=== PATIENT | female | born 1970 | race African-American/Black ===

== ENCOUNTER 2016-12-11 23:05 | Inpatient (IN) | payer OTHER ==
[~2016-12-11] VITALS: Ht 160 cm; Wt 263.1 kg
[~2016-12-11 23:05] MED LIST: ALPR2TAB2 PO; AMLO-254 PO; AMOX1TAB61 PO; ASPI-482 PO; BUME2TAB PO; CEPH-264 PO; FLUO10CA13 PO; FLUT1DIS3 IH; FURO80TA3 PO; HYDR-2678 PO; HYDR-963 PO; METO50TA2 PO; NAPR220C PO; OXYC-244 PO; OXYC-250 PO; PANT40GR PO; POTA10CA PO; PRED20TA PO; PROG100C7 PO; TIOT18CA IH; TIZA4TAB PO; WARF2.5T PO; WARF2TAB7 PO
[2016-12-12] VITALS (8 sets, daily range): BP systolic 115–145; BP diastolic 49–67
--- NOTE | 2016-12-12 00:18 | PHYS DOC ---
Past Medical History Past Medical History: Asthma, CHF, COPD, Pneumonia Additional Past Medical Histor: Pulmonary Edema,morbid obesity Past Surgical History: Tubal ligation Additional Past Surgical Histo: HERNIA REPAIR Alcohol Use: Rarely Drug Use: None Adult General Chief Complaint Chief Complaint: CHEST PAIN HPI HPI Patient is a 46 year old female who presents with chest pain and shortness of breath. Patient reports for the past week she has been having body aches. Last night she started having tightness in her chest that is accompanied by shortness of breath with exertion. She also reports she has syncopal episode today where she for loss consciousness after she sat down on the toilet (did not fall). She was given aspirin and nitroglycerin by EMS. She says the nitroglycerin helped with a tightness in her chest. Review of Systems Review of Systems Constitutional: Lightheaded, syncope. Denies fever or chills Eyes: Denies change in visual acuity or eye pain HENT: Denies nasal congestion or sore throat Respiratory: Shortness of breath with exertion Cardiovascular: Chest tightness GI: Denies abdominal pain, nausea, vomiting, bloody stools or diarrhea : Denies dysuria or hematuria Musculoskeletal: Body aches Integument: Denies rash or skin lesions Neurologic: Denies headache, focal weakness or sensory changes Current Medications Current Medications Current Medications Medications (Trade) Dose Ordered Sig/Ron Start Time Stop Time Status Last Admin Dose Admin Acetaminophen/ Hydrocodone Bitart (Lortab 5/325) 2 tab 1X ONCE 12/12/16 01:30 12/12/16 01:31 DC 12/12/16 01:36 2 TAB Allergies Allergies Allergies Coded Allergies Type Severity Reaction Last Updated Verified coconut Allergy Intermediate 04/23/16 Yes shellfish derived Allergy Intermediate 07/08/14 Yes iodine Adverse Reaction Intermediate Nausea 04/23/16 Yes morphine Adverse Reaction Intermediate severe nausea and migraine 07/26/14 Yes Physical Exam Physical Exam Constitutional: Well developed, well nourished, no acute distress, non-toxic appearance HENT: Normocephalic, atraumatic, bilateral external ears normal Eyes: EOMI, conjunctiva normal, no discharge Neck: Normal range of motion, no stridor Cardiovascular: Heart rate normal, regular rhythm, no murmur Lungs & Thorax: Bilateral breath sounds clear to auscultation Abdomen: Morbidly obese. Bowel sounds normal, soft, non-distended, no TTP Skin: Warm, dry, no erythema, no rash Extremities: No obvious deformity, no edema Neurologic: Alert and oriented X 3, no gross deficits noted Current Patient Data Vital Signs Vital Signs Date Time Temp Pulse Resp B/P Pulse Ox O2 Delivery O2 Flow Rate FiO2 12/12/16 02:30 94 138/63 97 Nasal Cannula 3 12/12/16 01:36 20 12/11/16 23:20 98.5 98.5 Lab Values Laboratory Tests Test 12/12/16 01:00 12/12/16 02:26 White Blood Count 10.1x10^3/uL (4.0-11.0) Red Blood Count 3.72x10^6/uL (3.50-5.40) Hemoglobin 10.2g/dL (12.0-15.5) L Hematocrit 31.4% (36.0-47.0) L Mean Corpuscular Volume 85fL (79-100) Mean Corpuscular Hemoglobin 27pg (25-35) Mean Corpuscular Hemoglobin Concent 32g/dL (31-37) Red Cell Distribution Width 16.9% (11.5-14.5) H Platelet Count 295x10^3/uL (140-400) Neutrophils (%) (Auto) 76% (31-73) H Lymphocytes (%) (Auto) 16% (24-48) L Monocytes (%) (Auto) 5% (0-9) Eosinophils (%) (Auto) 2% (0-3) Basophils (%) (Auto) 1% (0-3) Neutrophils # (Auto) 7.7x10^3uL (1.8-7.7) Lymphocytes # (Auto) 1.6x10^3/uL (1.0-4.8) Monocytes # (Auto) 0.5x10^3/uL (0.0-1.1) Eosinophils # (Auto) 0.2x10^3/uL (0.0-0.7) Basophils # (Auto) 0.1x10^3/uL (0.0-0.2) Sodium Level 138mmol/L (136-145) Potassium Level 4.7mmol/L (3.5-5.1) Chloride Level 99mmol/L (98-107) Carbon Dioxide Level 37mmol/L (21-32) H Anion Gap 2 (6-14) L Blood Urea Nitrogen 11mg/dL (7-20) Creatinine 0.6mg/dL (0.6-1.0) Estimated GFR (Cockcroft-Gault) 131.4 Glucose Level 94mg/dL (70-99) Calcium Level 9.4mg/dL (8.5-10.1) Total Bilirubin 0.5mg/dL (0.2-1.0) Direct Bilirubin < 0.1mg/dL (0.0-0.2) Aspartate Amino Transferase (AST) 34U/L (15-37) Alanine Aminotransferase (ALT) 10U/L (14-59) L Alkaline Phosphatase 63U/L (46-116) Troponin I Quantitative < 0.017ng/mL (0.000-0.055) GG-Yke-C-Type Natriuretic Peptide 66pg/mL (0-124) Total Protein 8.4g/dL (6.4-8.2) H Albumin 2.9g/dL (3.4-5.0) L Urine Collection Type U cath Urine Color Yellow Urine Clarity Clear Urine pH 5.5 Urine Specific Leonard 1.020 Urine Protein Negativemg/dL (NEG-TRACE) Urine Glucose (UA) Negativemg/dL (NEG) Urine Ketones (Stick) Negativemg/dL (NEG) Urine Blood Negative (NEG) Urine Nitrite Negative (NEG) Urine Bilirubin Negative (NEG) Urine Urobilinogen Dipstick 0.2mg/dL (0.2 mg/dL) Urine Leukocyte Esterase Negative (NEG) Urine RBC Occ/HPF (0-2) Urine WBC Occ/HPF (0-4) Urine Squamous Epithelial Cells Few/LPF Urine Bacteria 0/HPF (0-FEW) Urine Hyaline Casts Few/HPF Laboratory Tests 12/12/16 01:00 Laboratory Tests 12/12/16 01:00 EKG EKG EKG (my read): sinus rhythm, rate 92, LAD, intervals wnl, no acute ischemic changes Radiology/Procedures Radiology/Procedures CXR (my read): Linear opacity R lung base Course & Med Decision Making Course & Med Decision Making Pertinent Labs and Imaging studies reviewed. (See chart for details) Patient is 46-year-old female who presents with chest pain, shortness of breath , syncopal episode. Will check EKG, chest x-ray, labs to evaluate. Oral pain medication ordered for relief of symptoms. Labs notable for mild anemia. EKG and chest x-ray results as above. Although I believe findings on chest x-ray or more likely platelike atelectasis, I will go ahead and treat with azithromycin and Rocephin to cover for possibility of community-acquired pneumonia. Discussed with patient. Discussed with Dr. Junior, will admit under his care for further evaluation and treatment. Dragon Disclaimer Dragon Disclaimer This electronic medical record was generated, in whole or in part, using a voice recognition dictation system. Departure Departure Impression: Primary Impression: Syncope Additional Impressions: Chest pain SOB (shortness of breath) Disposition: ADMITTED INPATIENT Admitting Physician: Zev Junior Condition: STABLE Referrals: VALERIA JEFFERY TOOL MACHINIST (PCP) Problem Qualifiers SHARRON SILVA MD Dec 12, 2016 00:18
[2016-12-12 01:17] LABS: BASO # 0.1 x10^3/uL (0.0-0.2); BASO % 1 % (0-3); EOS % 2 % (0-3); HEMATOCRIT 31.4 % (36.0-47.0); HEMOGLOBIN 10.2 g/dL (12.0-15.5); LYMPH # 1.6 x10^3/uL (1.0-4.8); LYMPH % 16 % (24-48); MEAN CORPUSCULAR HEMOGLOBIN 27 pg (25-35); MEAN CORPUSCULAR HGB CONC 32 g/dL (31-37); MEAN CORPUSCULAR VOLUME 85 fL (79-100); MONO % 5 % (0-9); NEUT % 76 % (31-73); PLATELET COUNT 295 x10^3/uL (140-400); RED BLOOD COUNT 3.72 x10^6/uL (3.50-5.40); RED CELL DISTRIBUTION WIDTH 16.9 % (11.5-14.5); WHITE BLOOD COUNT 10.1 x10^3/uL (4.0-11.0)
[2016-12-12 01:30] LABS: ANION GAP 2 (6-14); BLOOD UREA NITROGEN 11 mg/dL (7-20); CALCIUM 9.4 mg/dL (8.5-10.1); CARBON DIOXIDE 37 mmol/L (21-32); CHLORIDE 99 mmol/L (98-107); CREATININE 0.6 mg/dL (0.6-1.0); GFR 131.4; GLUCOSE 94 mg/dL (70-99); POTASSIUM 4.7 mmol/L (3.5-5.1); SODIUM 138 mmol/L (136-145)
[2016-12-12] MEDS ORDERED: HYDROCODONE/APAP 5/325MG TABLET. PO ONE (01:30)
[2016-12-12 01:36] LABS: ALBUMIN 2.9 g/dL (3.4-5.0); ALK PHOS 63 U/L (46-116); ALT (SGPT) 10 U/L (14-59); AST (SGOT) 34 U/L (15-37); DIRECT BILIRUBIN < 0.1 mg/dL (0.0-0.2); TOTAL BILIRUBIN 0.5 mg/dL (0.2-1.0); TOTAL PROTEIN 8.4 g/dL (6.4-8.2)
[2016-12-12 02:45] LABS: BILIRUBIN,URINE NEGATIVE (NEG); GLUCOSE,URINE NEGATIVE (NEG); NITRITE,URINE NEGATIVE (NEG); PH,URINE 5.5; PROTEIN,URINE NEGATIVE (NEG-TRACE); UROBILINOGEN,URINE 0.2 mg/dL (0.2 mg/dL)
[2016-12-12] MEDS ORDERED: ONDANSETRON PF 4 MG/2 ML VIAL. IV PRN (02:45)
[2016-12-12] MEDS ORDERED: ACETAMINOPHEN 325 MG TABLET. PO PRN (02:45)
[2016-12-12] MEDS ORDERED: AZITHROMYCIN 500 MG in IV NORMAL SALINE 250ML 250 ML IV ONE (03:00)
[2016-12-12] MEDS ORDERED: CEFTRIAXONE 1GM IVPB FOR OMNI 50 ML IV ONE (03:00)
[2016-12-12 03:25] LABS: BACTERIA,URINE 0 /HPF (0-FEW); RBC,URINE OCC /HPF (0-2); SQUAMOUS EPITHELIAL CELL,UR FEW /LPF; WBC,URINE OCC /HPF (0-4)
[2016-12-12] MEDS ORDERED: NYST60PO TP (04:05)
[2016-12-12] MEDS ORDERED: PROAIR HFA8.5 GM INH (04:05)
[2016-12-12] MEDS ORDERED: METO10TA5 PO (04:05)
[2016-12-12] MEDS ORDERED: FLUT16SP NS (04:05)
[2016-12-12] MEDS ORDERED: POTA20TA4 PO (04:05)
[2016-12-12] MEDS ORDERED: FERR-26 PO (04:05)
[2016-12-12] MEDS ORDERED: FURO80TA3 PO (04:05)
--- NOTE | 2016-12-12 07:29 | RAD ---
Portable chest, 12/12/2016: History: Shortness of breath, chest pressure Comparison is made to a study from 08/17/2016. There is chronic elevation of the right hemidiaphragm. There is mild discoid atelectasis in the right base. The heart is mildly enlarged. The pulmonary vascularity is at the upper limits of normal. No left lung infiltrate is seen. No pleural fluid is evident. IMPRESSION: 1. Chronic elevation of the right hemidiaphragm with discoid atelectasis in the right base. 2. Cardiomegaly with borderline vascular congestion.
--- NOTE | 2016-12-12 08:34 | EKG ---
[facility] [address] [place] [address] Test Date: 2016-12-11 Test Time: 23:17:53 Pat Name: LELO UMANA Department: Room: Gender: F [employer] Superintendent: : 1970 Requested By: SHARRON SILVA Order Number: [id number] Reading MD: Measurements Intervals [place] Rate: 92 P: 59 MI: 204 QRS: -8 QRSD: 74 T: 23 QT: 356 QTc: 445 Interpretive Statements SINUS RHYTHM LEFTWARD AXIS QRS(T) CONTOUR ABNORMALITY CONSISTENT WITH INFERIOR INFARCT PROBABLY OLD ABNORMAL ECG RI6.01 Compared to ECG 08/17/2016 02:46:44 Left-axis deviation now present Myocardial infarct finding now present
[2016-12-12] MEDS ORDERED: NON FORMULARY ITEM (Albuterol Sulfate (Proair Hfa Inhaler) 1 PUFF) INH PRN (13:00)
[2016-12-12] MEDS ORDERED: ALBUTEROL SULFATE 2.5 MG/3 ML NEBU. NEB PRN (13:00)
[2016-12-12 13:29] LABS: INR 2.2 (0.8-1.1); PROTHROMBIN TIME PATIENT 23.5 SEC (11.7-14.0)
[2016-12-12] MEDS: POTASSIUM CHLORIDE 20 MEQ TABLET.ER. PO SCH (14:41)
[2016-12-12] MEDS: FUROSEMIDE 80 MG TABLET PO SCH (14:42)
[2016-12-12] MEDS: tiZANidine 4 MG TABLET. PO SCH ×2 (14:42→21:10)
[2016-12-12] MEDS: FERROUS SULFATE 325 MG TABLET PO SCH (14:42)
[2016-12-12] MEDS: PROGESTERONE, MICRONIZED 100 MG CAPSULE PO SCH (14:42)
[2016-12-12] MEDS: HYDROCODONE/APAP 10/325 TABLET. PO PRN ×2 (14:43→21:13)
[2016-12-12] MEDS: FLUTICASONE 50MCG/NASAL SPRAY 16GM BOTTLE. NS SCH (14:44)
[2016-12-12] MEDS: WARFARIN 2.5 MG TABLET. PO SCH (16:00)
[2016-12-12 18:00] LABS: OBC FLU VALID
[2016-12-12] MEDS ORDERED: FUROSEMIDE 40 MG/4 ML VIAL IVP ONE (20:15)
[2016-12-12] MEDS: ALPRAZOLAM 1 MG TABLET PO PRN (21:13)
--- NOTE | 2016-12-13 02:09 | HP ---
ADMIT DATE: 12/12/2016 CHIEF COMPLAINT: Generalized body aches, respirophasic chest pain, shortness of breath. HISTORY OF PRESENT ILLNESS: This is a 46-year-old woman, who presented to the Emergency Room with several days of shortness of breath and worsening chest pain. She related this as slowly had been coming on and getting worse and worse. She also had worsening shortness of breath with exertion. Reports one episode of syncope while using the toilet without any injuries. In the EMS, she was given nitroglycerin and aspirin and relates that her chest tightness that she has experienced since last night, actually has improved. She denies any subjective fevers or chills, has generalized malaise and myalgia, no sick contacts. PAST MEDICAL HISTORY: Asthma, COPD, CHF, morbid obesity, hypoventilation syndrome and pulmonary edema. She is status post tubal ligation and hernia repair. FAMILY HISTORY: Negative for heart disease or hypertension. SOCIAL HISTORY: Lives with her family. No toxic habits, quit smoking several years ago. ALLERGIES: IODINE, MORPHINE AND SHELLFISH. MEDICATIONS: MAR reconciled with home medications. REVIEW OF SYSTEMS: Positive as per HPI. Neck hurts as well causing some stress headaches. She also relates that she has gained about 16 pounds in the past week and is concerned that her fluid is accumulating in one of her pannus. PHYSICAL EXAMINATION: VITAL SIGNS: From today show a blood pressure of 120/63, heart rate of 99, respiratory rate is 20. She is afebrile. GENERAL: This is a catastrophically obese, 46-year-old woman, alert and oriented, in no acute distress. HEENT: Shows no scleral icterus. Oral mucosa is pink and moist. NECK: Thick and no palpable lymphadenopathy. LUNGS: Clear to auscultation bilaterally. Distant breath sounds. HEART: Regular rate and rhythm, distant heart sounds. ABDOMEN: Massively obese, positive bowel sounds. Organs could not be palpated. EXTREMITIES: Showed massively fat thighs, ankles with trace edema are actually fairly slim, chronic venous stasis changes over her distal lower extremities. LABORATORY DATA: CBC with a WBC of 10.1, hemoglobin 10.2, platelets of 295. BUN and creatinine of 11 and 0.6, normal electrolytes safe for CO2 at 37. LFTs within normal. Albumin is 2.9. Troponin negative x 3. Influenza serology negative for A and B. IMAGING: Chest x-ray in the Emergency Room showing cardiomegaly and chronic elevation of right hemidiaphragm with discoid atelectasis in the right base. ASSESSMENT AND PLAN: The patient is a 46-year-old woman with catastrophic obesity with a BMI of 98.5. Admitted with mild respiratory symptoms malaise, aches and pains, suspicious for a viral syndrome. I suspect that In addition, she has fluid retention as her Lasix dose actually has been cut by her PCP from 160 to 120 mg several days ago. Increased vascular congestion on chest x-ray is indicative as is massive weight gain. We will treat her symptomatically for her respiratory infection. For fluid retention, we will give her IV Lasix and place Earl as her body habitus is not contuses to getting up and out of bed easily. I will continue all of her other home medications as well. Hopefully, symptoms will improve in short order. SAILAJA GARCIA MD DR: TAMIKO/georgette JOB#: [id number] / [id number] RHONDA
[2016-12-13 03:00] VITALS: BP 109/60
[2016-12-13 05:56] LABS: CALCIUM 8.6 mg/dL (8.5-10.1); CREATININE 0.8 mg/dL (0.6-1.0); GFR 94.3; MAGNESIUM 1.7 mg/dL (1.8-2.4); POTASSIUM 3.5 mmol/L (3.5-5.1)
[2016-12-13 06:08] LABS: BASO % 0 % (0-3); EOS % 3 % (0-3); HEMATOCRIT 29.9 % (36.0-47.0); HEMOGLOBIN 9.9 g/dL (12.0-15.5); LYMPH # 1.7 x10^3/uL (1.0-4.8); LYMPH % 21 % (24-48); MEAN CORPUSCULAR HEMOGLOBIN 28 pg (25-35); MEAN CORPUSCULAR HGB CONC 33 g/dL (31-37); MEAN CORPUSCULAR VOLUME 85 fL (79-100); MONO % 6 % (0-9); NEUT % 70 % (31-73); PLATELET COUNT 270 x10^3/uL (140-400); RED BLOOD COUNT 3.51 x10^6/uL (3.50-5.40); RED CELL DISTRIBUTION WIDTH 17.1 % (11.5-14.5); WHITE BLOOD COUNT 8.2 x10^3/uL (4.0-11.0)
[2016-12-13 07:30] VITALS: BP 107/50
[2016-12-13] MEDS: FERROUS SULFATE 325 MG TABLET PO SCH (09:08)
[2016-12-13] MEDS: POTASSIUM CHLORIDE 20 MEQ TABLET.ER. PO SCH (09:09)
[2016-12-13] MEDS: FLUTICASONE 50MCG/NASAL SPRAY 16GM BOTTLE. NS SCH ×2 (09:09→09:23)
[2016-12-13] MEDS: PROGESTERONE, MICRONIZED 100 MG CAPSULE PO SCH (09:10)
[2016-12-13] MEDS: FUROSEMIDE 80 MG TABLET PO SCH (09:10)
[2016-12-13] MEDS: tiZANidine 4 MG TABLET. PO SCH ×2 (09:10→21:17)
[2016-12-13 11:16] VITALS: BP 102/50
--- NOTE | 2016-12-13 12:43 | PDOC ---
PROGRESS NOTES Chief Complaint Chief Complaint Viral Syndrome ASSESSMENT AND PLAN: 1. Viral syndrome: supportive care 2. Fluid overload: IV lasix PRN in addition to home dose. I&O -1700/24h so far 3. Hypomagnesemia: replete IV 4. Hypokalemia: replete PO 5. Hypercarbia: chronic, stable, 2/2 hypoventilation with morbid obesity. has CPAP for sleep 6. Anemia: chronic, stable. suspect chronic inflammation. monitor 7. Prophylaxis: SCDs. no change in activity level from home 8. Dispo: poss home in AM Vitals Vitals Vital Signs Date Time Temp Pulse Resp B/P Pulse Ox O2 Delivery O2 Flow Rate FiO2 12/13/16 11:16 97.8 89 20 102/50 94 Nasal Cannula 3.0 97.8 Physical Exam General: Alert, Oriented X3, Cooperative, No acute distress Heart: Regular rate Lungs: Clear Abdomen: Normal bowel sounds Extremities: No edema Skin: No rashes Labs LABS Laboratory Tests Test 12/12/16 14:20 12/12/16 17:19 12/13/16 04:48 Troponin I Quantitative < 0.017ng/mL (0.000-0.055) Influenza Type A Antigen Negative (NEGATIVE) Influenza Type B Antigen Negative (NEGATIVE) White Blood Count 8.2x10^3/uL (4.0-11.0) Red Blood Count 3.51x10^6/uL (3.50-5.40) Hemoglobin 9.9g/dL (12.0-15.5) Hematocrit 29.9% (36.0-47.0) Mean Corpuscular Volume 85fL (79-100) Mean Corpuscular Hemoglobin 28pg (25-35) Mean Corpuscular Hemoglobin Concent 33g/dL (31-37) Red Cell Distribution Width 17.1% (11.5-14.5) Platelet Count 270x10^3/uL (140-400) Neutrophils (%) (Auto) 70% (31-73) Lymphocytes (%) (Auto) 21% (24-48) Monocytes (%) (Auto) 6% (0-9) Eosinophils (%) (Auto) 3% (0-3) Basophils (%) (Auto) 0% (0-3) Neutrophils # (Auto) 5.7x10^3uL (1.8-7.7) Lymphocytes # (Auto) 1.7x10^3/uL (1.0-4.8) Monocytes # (Auto) 0.5x10^3/uL (0.0-1.1) Eosinophils # (Auto) 0.3x10^3/uL (0.0-0.7) Basophils # (Auto) 0.0x10^3/uL (0.0-0.2) Sodium Level 145mmol/L (136-145) Potassium Level 3.5mmol/L (3.5-5.1) Chloride Level 103mmol/L (98-107) Carbon Dioxide Level 40mmol/L (21-32) Anion Gap 2 (6-14) Blood Urea Nitrogen 11mg/dL (7-20) Creatinine 0.8mg/dL (0.6-1.0) Estimated GFR (Cockcroft-Gault) 94.3 Glucose Level 122mg/dL (70-99) Calcium Level 8.6mg/dL (8.5-10.1) Magnesium Level 1.7mg/dL (1.8-2.4) Review of Systems Review of Systems resting comfortably. no c/o SAILAJA GARCIA MD Dec 13, 2016 12:43
[2016-12-13 15:02] VITALS: BP 113/65
[2016-12-13] MEDS: WARFARIN 2.5 MG TABLET. PO SCH (16:15)
[2016-12-13] MEDS: HYDROCODONE/APAP 10/325 TABLET. PO PRN ×2 (16:17→21:18)
[2016-12-13] MEDS ORDERED: POTASSIUM CHLORIDE 20 MEQ TABLET.ER. PO ONE ×2 (17:00→21:00)
[2016-12-13] MEDS ORDERED: FUROSEMIDE 40 MG/4 ML VIAL IVP ONE (17:00)
[2016-12-13] MEDS ORDERED: MAGNESIUM SULFATE 2GM 50 ML IV ONE (17:00)
[2016-12-13 19:59] VITALS: BP 138/58
[2016-12-13] MEDS: ALPRAZOLAM 1 MG TABLET PO PRN (21:18)
[2016-12-13 23:30] VITALS: BP 84/52
[2016-12-14] MEDS: HYDROCODONE/APAP 10/325 TABLET. PO PRN ×3 (02:52→22:56)
[2016-12-14 03:59] VITALS: BP 122/44
[2016-12-14 07:00] VITALS: BP 125/44
[2016-12-14 08:37] LABS: BASO % 0 % (0-3); EOS % 3 % (0-3); HEMATOCRIT 33.4 % (36.0-47.0); HEMOGLOBIN 10.6 g/dL (12.0-15.5); LYMPH # 1.7 x10^3/uL (1.0-4.8); LYMPH % 18 % (24-48); MEAN CORPUSCULAR HEMOGLOBIN 27 pg (25-35); MEAN CORPUSCULAR HGB CONC 32 g/dL (31-37); MEAN CORPUSCULAR VOLUME 87 fL (79-100); MONO % 4 % (0-9); NEUT % 76 % (31-73); PLATELET COUNT 287 x10^3/uL (140-400); RED BLOOD COUNT 3.86 x10^6/uL (3.50-5.40); RED CELL DISTRIBUTION WIDTH 16.4 % (11.5-14.5); WHITE BLOOD COUNT 9.6 x10^3/uL (4.0-11.0)
[2016-12-14 08:50] LABS: INR 1.9 (0.8-1.1); PROTHROMBIN TIME PATIENT 20.7 SEC (11.7-14.0)
[2016-12-14 08:57] LABS: CALCIUM 8.7 mg/dL (8.5-10.1); CREATININE 0.7 mg/dL (0.6-1.0); MAGNESIUM 1.9 mg/dL (1.8-2.4); POTASSIUM 3.8 mmol/L (3.5-5.1)
[2016-12-14] MEDS: FERROUS SULFATE 325 MG TABLET PO SCH (10:33)
[2016-12-14] MEDS: tiZANidine 4 MG TABLET. PO SCH ×2 (10:33→21:16)
[2016-12-14] MEDS: POTASSIUM CHLORIDE 20 MEQ TABLET.ER. PO SCH (10:33)
[2016-12-14] MEDS: FUROSEMIDE 80 MG TABLET PO SCH (10:35)
[2016-12-14] MEDS: FLUTICASONE 50MCG/NASAL SPRAY 16GM BOTTLE. NS SCH (10:35)
[2016-12-14] MEDS: PROGESTERONE, MICRONIZED 100 MG CAPSULE PO SCH (10:35)
[2016-12-14 11:00] VITALS: BP 146/74
--- NOTE | 2016-12-14 13:59 | PDOC ---
PROGRESS NOTES Chief Complaint Chief Complaint Viral Syndrome ASSESSMENT AND PLAN: 1. Viral syndrome: supportive care 2. Fluid overload: much improved. IV lasix PRN in addition to home dose. I&O -3-4L daily, although same wt by bed scale. increase home lasix back up to 160mg. 3. Hypomagnesemia: resolved 4. Hypokalemia: resolved. continue repletion PO with ongoing lasix rx 5. Hypercarbia: chronic, stable, 2/2 hypoventilation with morbid obesity. has CPAP for sleep 6. Anemia: chronic, stable. suspect chronic inflammation. monitor 7. Prophylaxis: SCDs. no change in activity level from home 8. Dispo: home in AM Vitals Vitals Vital Signs Date Time Temp Pulse Resp B/P Pulse Ox O2 Delivery O2 Flow Rate FiO2 12/14/16 11:00 98.2 99 18 146/74 97 Nasal Cannula 3.0 98.2 Physical Exam General: Alert, Oriented X3, Cooperative, No acute distress Heart: Regular rate Lungs: Clear Abdomen: Normal bowel sounds Extremities: No edema Skin: No rashes Labs LABS Laboratory Tests Test 12/14/16 08:05 12/14/16 08:25 White Blood Count 9.6x10^3/uL (4.0-11.0) Red Blood Count 3.86x10^6/uL (3.50-5.40) Hemoglobin 10.6g/dL (12.0-15.5) Hematocrit 33.4% (36.0-47.0) Mean Corpuscular Volume 87fL (79-100) Mean Corpuscular Hemoglobin 27pg (25-35) Mean Corpuscular Hemoglobin Concent 32g/dL (31-37) Red Cell Distribution Width 16.4% (11.5-14.5) Platelet Count 287x10^3/uL (140-400) Neutrophils (%) (Auto) 76% (31-73) Lymphocytes (%) (Auto) 18% (24-48) Monocytes (%) (Auto) 4% (0-9) Eosinophils (%) (Auto) 3% (0-3) Basophils (%) (Auto) 0% (0-3) Neutrophils # (Auto) 7.2x10^3uL (1.8-7.7) Lymphocytes # (Auto) 1.7x10^3/uL (1.0-4.8) Monocytes # (Auto) 0.4x10^3/uL (0.0-1.1) Eosinophils # (Auto) 0.3x10^3/uL (0.0-0.7) Basophils # (Auto) 0.0x10^3/uL (0.0-0.2) Prothrombin Time 20.7SEC (11.7-14.0) Prothromb Time International Ratio 1.9 (0.8-1.1) Sodium Level 139mmol/L (136-145) Potassium Level 3.8mmol/L (3.5-5.1) Chloride Level 98mmol/L (98-107) Carbon Dioxide Level 38mmol/L (21-32) Anion Gap 3 (6-14) Blood Urea Nitrogen 13mg/dL (7-20) Creatinine 0.7mg/dL (0.6-1.0) Estimated GFR (Cockcroft-Gault) 110.0 Glucose Level 118mg/dL (70-99) Calcium Level 8.7mg/dL (8.5-10.1) Magnesium Level 1.9mg/dL (1.8-2.4) Review of Systems Review of Systems feels better. is convinced she can assess fluid status by poking pannus. SAILAJA GARCIA MD Dec 14, 2016 13:59
[2016-12-14 15:00] VITALS: BP 118/64
[2016-12-14] MEDS: WARFARIN 2.5 MG TABLET. PO SCH (18:23)
[2016-12-14 19:00] VITALS: BP 137/81
[2016-12-14] MEDS: ALPRAZOLAM 1 MG TABLET PO PRN (21:16)
[2016-12-14 23:00] VITALS: BP 95/99
[2016-12-15 03:00] VITALS: BP_SYST 115; BP_SYST 95; BP_DIAS 64; BP_DIAS 99
[2016-12-15 05:08] LABS: BASO % 0 % (0-3); EOS % 3 % (0-3); HEMATOCRIT 33.4 % (36.0-47.0); HEMOGLOBIN 10.5 g/dL (12.0-15.5); LYMPH # 1.5 x10^3/uL (1.0-4.8); LYMPH % 16 % (24-48); MEAN CORPUSCULAR HEMOGLOBIN 27 pg (25-35); MEAN CORPUSCULAR HGB CONC 32 g/dL (31-37); MEAN CORPUSCULAR VOLUME 86 fL (79-100); MONO % 3 % (0-9); NEUT % 78 % (31-73); PLATELET COUNT 285 x10^3/uL (140-400); RED BLOOD COUNT 3.86 x10^6/uL (3.50-5.40); RED CELL DISTRIBUTION WIDTH 16.6 % (11.5-14.5); WHITE BLOOD COUNT 9.4 x10^3/uL (4.0-11.0)
[2016-12-15] MEDS: HYDROCODONE/APAP 10/325 TABLET. PO PRN (06:11)
[2016-12-15 06:22] LABS: CALCIUM 8.6 mg/dL (8.5-10.1); CREATININE 0.8 mg/dL (0.6-1.0); GFR 94.3; MAGNESIUM 1.8 mg/dL (1.8-2.4); POTASSIUM 3.2 mmol/L (3.5-5.1)
[2016-12-15 07:00] VITALS: BP 118/62
[2016-12-15 08:10] VITALS: BP 118/62
[2016-12-15] MEDS: FERROUS SULFATE 325 MG TABLET PO SCH (08:23)
[2016-12-15] MEDS: POTASSIUM CHLORIDE 20 MEQ TABLET.ER. PO SCH (08:24)
[2016-12-15] MEDS: PROGESTERONE, MICRONIZED 100 MG CAPSULE PO SCH (08:25)
[2016-12-15] MEDS: tiZANidine 4 MG TABLET. PO SCH (08:26)
[2016-12-15] MEDS: FUROSEMIDE 80 MG TABLET PO SCH (08:27)
[2016-12-15] MEDS: FLUTICASONE 50MCG/NASAL SPRAY 16GM BOTTLE. NS SCH (08:28)
[2016-12-15] MEDS ORDERED: POTASSIUM CHLORIDE 20 MEQ TABLET.ER. PO ONE (08:45)
[2016-12-15] MEDS ORDERED: DICLOFENAC SODIUM 1% TOPICAL GEL 100GM TUBE. TP SCH (09:00)
--- NOTE | 2016-12-15 09:37 | PDOC ---
PROGRESS NOTES Chief Complaint Chief Complaint Viral Syndrome ASSESSMENT AND PLAN: 1. Viral syndrome: supportive care 2. Fluid overload: much improved. IV lasix PRN in addition to home dose. I&O -3-4L daily, although same wt by bed scale. increase home lasix back up to 160mg. 3. Hypomagnesemia: resolved 4. Hypokalemia: resolved. continue repletion PO with ongoing lasix rx 5. Hypercarbia: chronic, stable, 2/2 hypoventilation with morbid obesity. has CPAP for sleep 6. Anemia: chronic, stable. suspect chronic inflammation. monitor 7. Prophylaxis: SCDs. no change in activity level from home 8. Dispo: home tioday Vitals Vitals Vital Signs Date Time Temp Pulse Resp B/P Pulse Ox O2 Delivery O2 Flow Rate FiO2 12/15/16 08:10 97.9 101 20 118/62 BiPAP/CPAP 90.0 97.9 12/15/16 08:07 96 Physical Exam General: Alert, Oriented X3, Cooperative, No acute distress Heart: Regular rate Lungs: Clear Abdomen: Normal bowel sounds Extremities: No edema Skin: No rashes Labs LABS Laboratory Tests Test 12/15/16 04:10 White Blood Count 9.4x10^3/uL (4.0-11.0) Red Blood Count 3.86x10^6/uL (3.50-5.40) Hemoglobin 10.5g/dL (12.0-15.5) Hematocrit 33.4% (36.0-47.0) Mean Corpuscular Volume 86fL (79-100) Mean Corpuscular Hemoglobin 27pg (25-35) Mean Corpuscular Hemoglobin Concent 32g/dL (31-37) Red Cell Distribution Width 16.6% (11.5-14.5) Platelet Count 285x10^3/uL (140-400) Neutrophils (%) (Auto) 78% (31-73) Lymphocytes (%) (Auto) 16% (24-48) Monocytes (%) (Auto) 3% (0-9) Eosinophils (%) (Auto) 3% (0-3) Basophils (%) (Auto) 0% (0-3) Neutrophils # (Auto) 7.4x10^3uL (1.8-7.7) Lymphocytes # (Auto) 1.5x10^3/uL (1.0-4.8) Monocytes # (Auto) 0.3x10^3/uL (0.0-1.1) Eosinophils # (Auto) 0.2x10^3/uL (0.0-0.7) Basophils # (Auto) 0.0x10^3/uL (0.0-0.2) Sodium Level 139mmol/L (136-145) Potassium Level 3.2mmol/L (3.5-5.1) Chloride Level 97mmol/L (98-107) Carbon Dioxide Level 37mmol/L (21-32) Anion Gap 5 (6-14) Blood Urea Nitrogen 12mg/dL (7-20) Creatinine 0.8mg/dL (0.6-1.0) Estimated GFR (Cockcroft-Gault) 94.3 Glucose Level 153mg/dL (70-99) Calcium Level 8.6mg/dL (8.5-10.1) Magnesium Level 1.8mg/dL (1.8-2.4) Review of Systems Review of Systems feels much improved, ready to go home Comment Review of Relevant SAILAJA GARCIA MD Dec 15, 2016 09:37
[2016-12-15 11:08] VITALS: BP 91/45
[2016-12-15] MEDS ORDERED: FURO80TA3 PO (11:11)
--- NOTE | 2016-12-16 00:34 | DS ---
DATE OF DISCHARGE: 12/15/2016 CHIEF COMPLAINT: Viral syndrome, fluid overload. HOSPITAL COURSE: The patient is a catastrophically obese 46-year-old woman who presented with some shortness of breath and generalized malaise without any fevers, minimal respiratory symptoms with cough. She was diagnosed presumptively with viral syndrome. Because of significant increase in weight, suspicion for fluid overload was given as well and she was therefore treated with additional Lasix IV. This resulted in successful diuresis of about 7-8 liters. The patient was feeling much better and was discharged on the 12/15/2016. PHYSICAL EXAMINATION: Please refer to note from same day. DISCHARGE DISPOSITION: To home. DISCHARGE CONDITION: Improved. DISCHARGE DIAGNOSES: Viral syndrome, fluid overload. DISCHARGE MEDICATIONS: Please refer to MAR. DISCHARGE INSTRUCTIONS: The patient will follow up with PCP in 1-2 weeks. SAILAJA GARCIA MD [address]: TAMIKO/nts JOB#: [id number] / [id number] VALERIA Donovan NP MTDD
== END 2016-12-15 13:09 | disposition home or self-care (01) | DRG 865 ==
LOC: ER 23:05 → 5 NORTH 12-12 02:34
PROVIDERS: ADMIT Internal Medicine; ATTEND Internal Medicine
DX: B34.9 Viral infection, unspecified (principal); J96.20 Acute and chronic respiratory failure, unspecified whether with hypoxia or hypercapnia; Z68.45 Body mass index [BMI] 70 or greater, adult; D64.9 Anemia, unspecified; E66.01 Morbid (severe) obesity due to excess calories; E83.42 Hypomagnesemia; E87.6 Hypokalemia; I50.9 Heart failure, unspecified; J44.9 Chronic obstructive pulmonary disease, unspecified; J45.909 Unspecified asthma, uncomplicated; Z86.711 Personal history of pulmonary embolism; Z98.51 Tubal ligation status; Z91.041 Radiographic dye allergy status; Z88.5 Allergy status to narcotic agent; Z91.013 Allergy to seafood; Z91.018 Allergy to other foods; Z91.048 Other nonmedicinal substance allergy status; E66.8 Other obesity
CPT/HCPCS: 36415; 71010; 80048; 80076; 81001; 83735; 83880; 84484; 85027; 85610; 87040; 87804; 93005; 94250; 94640; 94660; 94760; 95811; 96374; J0456; J0690; J1940; J7050; J7060; 99285-25; J7030

== ENCOUNTER 2017-01-16 01:18 | Inpatient (IN) | payer OTHER ==
[~2017-01-16] VITALS: Ht 172.7 cm; Wt 252.8 kg
[~2017-01-16 01:18] MED LIST changes: +FERR-26 PO; +FLUT16SP NS; +METO10TA5 PO; +NYST60PO TP; +POTA20TA4 PO; +PROAIR HFA8.5 GM INH
[2017-01-16 02:05] LABS: BASO # 0.1 x10^3/uL (0.0-0.2); BASO % 1 % (0-3); EOS % 2 % (0-3); HEMATOCRIT 32.3 % (36.0-47.0); HEMOGLOBIN 10.3 g/dL (12.0-15.5); LYMPH # 1.2 x10^3/uL (1.0-4.8); LYMPH % 14 % (24-48); MEAN CORPUSCULAR HEMOGLOBIN 28 pg (25-35); MEAN CORPUSCULAR HGB CONC 32 g/dL (31-37); MEAN CORPUSCULAR VOLUME 87 fL (79-100); MONO % 4 % (0-9); NEUT % 79 % (31-73); PLATELET COUNT 322 x10^3/uL (140-400); RED BLOOD COUNT 3.72 x10^6/uL (3.50-5.40); RED CELL DISTRIBUTION WIDTH 14.9 % (11.5-14.5); WHITE BLOOD COUNT 8.8 x10^3/uL (4.0-11.0)
[2017-01-16 02:11] LABS: INR 3.6 (0.8-1.1); PROTHROMBIN TIME PATIENT 34.2 SEC (11.7-14.0)
[2017-01-16 02:13] LABS: CALCIUM 8.9 mg/dL (8.5-10.1); CREATININE 0.7 mg/dL (0.6-1.0); POTASSIUM 3.6 mmol/L (3.5-5.1)
--- NOTE | 2017-01-16 02:25 | PHYS DOC ---
Past Medical History Past Medical History: Asthma, CHF, COPD, Pneumonia Additional Past Medical Histor: Pulmonary Edema,morbid obesity Past Surgical History: Tubal ligation Additional Past Surgical Histo: HERNIA REPAIR Alcohol Use: Rarely Drug Use: None Adult General Chief Complaint Chief Complaint: SHORTNESS OF BREATH [facility] HPI Patient is a 46 year old female who presents with dyspnea, chest tightness, and swelling worsening over the past few days. States she feels swelling in her abdominal wall and legs. She has gained >20lbs on her home scale over the past 2 weeks. She has orthopnea and worse exertional dyspnea than baseline. Has decreased urine output recently. She denies f/c, cough, abdominal pain, diarrhea, dysuria, palpitations, diaphoresis. Review of Systems Review of Systems Constitutional: Denies fever or chills [] Eyes: Denies change in visual acuity, redness, or eye pain [] HENT: Denies nasal congestion or sore throat [] Respiratory: Denies cough [] Cardiovascular: No additional information not addressed in HPI [] GI: Denies abdominal pain, nausea, vomiting, bloody stools or diarrhea [] : Denies dysuria or hematuria [] Musculoskeletal: Denies back pain or joint pain [] Integument: Denies rash or skin lesions [] Neurologic: Denies headache, focal weakness or sensory changes [] Endocrine: Denies polyuria or polydipsia [] Current Medications Current Medications Current Medications Medications (Trade) Dose Ordered Sig/Ron Start Time Stop Time Status Last Admin Dose Admin Acetaminophen (Tylenol) 650 mg PRN Q4HRS PRN 01/16/17 03:30 01/17/17 03:29 Furosemide (Lasix) 100 mg 1X ONCE 01/16/17 03:30 01/16/17 03:31 DC 01/16/17 03:39 100 MG Ondansetron HCl (Zofran) 4 mg PRN Q8HRS PRN 01/16/17 03:30 01/17/17 03:29 Allergies Allergies Allergies Coded Allergies Type Severity Reaction Last Updated Verified coconut Allergy Intermediate 04/23/16 Yes povidone-iodine Allergy Intermediate Rash 12/14/16 Yes shellfish derived Allergy Intermediate 07/08/14 Yes soap Allergy Intermediate Rash 12/14/16 Yes iodine Adverse Reaction Severe Swelling 12/14/16 Yes morphine Adverse Reaction Intermediate severe nausea and migraine 07/26/14 Yes Physical Exam Physical Exam Constitutional: Well developed, well nourished, no acute distress, non-toxic appearance. [] HENT: Normocephalic, atraumatic, bilateral external ears normal, oropharynx moist, nose normal. [] Eyes: PERRLA, EOMI. [] Neck: Normal range of motion, supple. [] Cardiovascular:Heart rate regular rhythm [] Lungs & Thorax: Bilateral breath sounds clear to auscultation [] Abdomen: Bowel sounds normal, soft, no tenderness. Edema of abdominal wall [] Skin: Warm, dry, no erythema, no rash. [] Back: Normal ROM. [] Extremities: No tenderness, ROM intact, bilateral 1+ LE edema. [] Neurologic: Alert and oriented X 3, normal motor function, normal sensory function, no focal deficits noted. [] Psychologic: Affect normal, judgement normal, mood normal. [] Current Patient Data Vital Signs Vital Signs Date Time Temp Pulse Resp B/P Pulse Ox O2 Delivery O2 Flow Rate FiO2 01/16/17 04:30 88 124/60 100 Nasal Cannula 3 01/16/17 01:20 97.7 18 97.7 Lab Values Laboratory Tests Test 01/16/17 01:45 White Blood Count 8.8x10^3/uL (4.0-11.0) Red Blood Count 3.72x10^6/uL (3.50-5.40) Hemoglobin 10.3g/dL (12.0-15.5) L Hematocrit 32.3% (36.0-47.0) L Mean Corpuscular Volume 87fL (79-100) Mean Corpuscular Hemoglobin 28pg (25-35) Mean Corpuscular Hemoglobin Concent 32g/dL (31-37) Red Cell Distribution Width 14.9% (11.5-14.5) H Platelet Count 322x10^3/uL (140-400) Neutrophils (%) (Auto) 79% (31-73) H Lymphocytes (%) (Auto) 14% (24-48) L Monocytes (%) (Auto) 4% (0-9) Eosinophils (%) (Auto) 2% (0-3) Basophils (%) (Auto) 1% (0-3) Neutrophils # (Auto) 6.9x10^3uL (1.8-7.7) Lymphocytes # (Auto) 1.2x10^3/uL (1.0-4.8) Monocytes # (Auto) 0.4x10^3/uL (0.0-1.1) Eosinophils # (Auto) 0.2x10^3/uL (0.0-0.7) Basophils # (Auto) 0.1x10^3/uL (0.0-0.2) Prothrombin Time 34.2SEC (11.7-14.0) H Prothrombin Time INR 3.6 (0.8-1.1) H Sodium Level 141mmol/L (136-145) Potassium Level 3.6mmol/L (3.5-5.1) Chloride Level 101mmol/L (98-107) Carbon Dioxide Level 33mmol/L (21-32) H Anion Gap 7 (6-14) Blood Urea Nitrogen 5mg/dL (7-20) L Creatinine 0.7mg/dL (0.6-1.0) Estimated GFR (Cockcroft-Gault) 110.0 Glucose Level 112mg/dL (70-99) H Calcium Level 8.9mg/dL (8.5-10.1) Troponin I Quantitative < 0.017ng/mL (0.000-0.055) CJ-Wuy-V-Type Natriuretic Peptide 98pg/mL (0-124) Laboratory Tests 01/16/17 01:45 Laboratory Tests 01/16/17 01:45 EKG EKG EKG as interpreted by me as normal sinus rhythm with first-degree AV block, rate 80, no ST-T changes, P-R 210, QTC 419, no ectopy Radiology/Procedures Radiology/Procedures Chest xray as interpreted by me with no acute cardiopulmonary disease process Course & Med Decision Making Course & Med Decision Making Pertinent Labs and Imaging studies reviewed. (See chart for details) Workup is unremarkable and suspect multifactorial dyspnea, yet with dyspnea and large amount of weight gain she will need admission for diuresis. Given dose of IV lasix in ED. Discussed case with Dr. Scott, who will admit. Cardiology consult placed. Dragon Disclaimer Dragon Disclaimer This electronic medical record was generated, in whole or in part, using a voice recognition dictation system. Departure Departure Impression: Primary Impression: SOB (shortness of breath) Additional Impression: CHF (congestive heart failure) Disposition: 09 ADMITTED INPATIENT Condition: STABLE Referrals: VALERIA JEFFERY [facility] (PCP) Problem Qualifiers Additional Impression: CHF (congestive heart failure) Congestive heart failure type: unspecified congestive heart failure type Congestive heart failure chronicity: acute on chronic Qualified Code: I50.9 - Heart failure, unspecified Carlos RAND MD Jan 16, 2017 02:25
[2017-01-16] MEDS ORDERED: ONDANSETRON PF 4 MG/2 ML VIAL. IV PRN (03:30)
[2017-01-16] MEDS ORDERED: FUROSEMIDE 100 MG/10 ML VIAL IVP ONE (03:30)
[2017-01-16] MEDS ORDERED: ACETAMINOPHEN 325 MG TABLET. PO PRN (03:30)
--- NOTE | 2017-01-16 06:55 | EKG ---
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
--- NOTE | 2017-01-16 07:21 | RAD ---
Portable chest, 01/16/2017: History: Shortness of breath Comparison is made to a study from 12/12/2016. The patient positioning is lordotic. There is chronic elevation of the right hemidiaphragm with mild discoid atelectasis in the right parahilar region. The heart is mildly enlarged. The pulmonary vascularity is at the upper limits of normal. No pleural fluid is seen. Similar findings were evident on the previous study. IMPRESSION: 1. Chronic elevation right hemidiaphragm with underlying discoid atelectasis. 2. Borderline vascular congestion
--- NOTE | 2017-01-16 08:40 | ACF ---
Admission Forms Criteria HEART FAILURE: COMMON COMPLICATIONS Clinical Indications for Inpatient Care (Place 'X' for any and all applicable criteria): Ongoing inpatient care may be indicated for heart failure with ANY ONE of the following (1)(2)(3)(4)(5): [ ]I. Ongoing need for care for primary condition requiring frequent therapy adjustments because of changes in cardiac function (eg, drug dosage changes for drugs that are renally metabolized) [ ]II. New-onset heart failure [ ]III. Heart failure with decreased urine output not responsive to attempts to optimize volume status [ ]IV. Acute cardiac ischemia causing or associated with failure [X]V. Complications of heart failure, including ANY ONE of the following: [ ]a) Pericardial effusion [ ]b) Symptomatic pleural effusion [ ]c) O2 saturation <90% or PO2 < 60 mm Hg (8.0 kPa) on room air or require baseline supplemental O2 [ ]d) Tachypnea [X]e) Dyspnea [ ]f) Syncope [ ]g) Change in mental status [ ]h) Acute renal insufficiency that is severe (reduction of more than 50% in estimated glomerular filtration rate from baseline) or progressive reduction of more than 25% in estimated glomerular filtration rate from baseline, with creatinine continuing to rise) [ ]i) Hemodynamic instability [ ]j) Anasarca [ ]k) Clinically significant metabolic abnormalities due to heart failure (eg, new-onset metabolic acidosis) Extended stay beyond goal length of stay for primary condition may be needed until ALL of the following are present(1)(3): [ ]a) Stable and effective diuretic regimen established (or patient on stable dialysis regimen if in chronic renal failure) [ ]b) Breathing comfortably at rest [ ]c) Saturation of arterial oxygen greater than 90% or at acceptable baseline [ ]d) Pulmonary edema absent or improved [ ]e) Hemodynamic stability [ ]f) Volume status acceptable on oral medication [ ]g) Peripheral or sacral edema absent or improved [ ]h) Renal function stable and manageable at a lower level of care [ ]i) Complications (eg, pleural effusion) resolved or manageable at a lower level of care [ ]j) Patient or caregiver has received written discharge instructions or educational material addressing activity level, diet, discharge medications, follow-up appointment, weight monitoring, and what to do if symptoms worsen The original [employer] content created by [employer] has been revised. The portions of the content which have been revised are identified through the use of italic text or in bold, and [facility] has neither reviewed nor approved the modified material.All other unmodified content is copyright [facility]. Please see references footnoted in the original [facility] edition 2016 Admission Criteria Met?: Yes KATELIN SCHUMACHER Jan 16, 2017 08:40
--- NOTE | 2017-01-16 11:25 | PDOC2 ---
MITCHEL MIR BELLHOP 01/16/17 1125: CARDIAC CONSULT DATE OF CONSULT Date of Consult DATE: 01/16/17 TIME: 11:24 REASON FOR CONSULT Reason for Consult: CHF REFERRING PHYSICIAN Referring Physician: Dr. Javed Arreaga SOURCE Source: Chart review, Patient HISTORY OF PRESENT ILLNESS HISTORY OF PRESENT ILLNESS 46 year old female admitted through the ER with increasing dyspnea over the last week and reports "retaining fluid." Change in weight unknown. No associated chest pain, dizziness, lightheadedness. C/O diarrhea this a.m. EKG without acute changes. Initial troponin level not consistent with AMI. NT- proBNP is 98. CXR not clearly suggestive of CHF. Has been dosed with IV furosemide in the ER. Reason for Visit: CHF PAST MEDICAL HISTORY Past Medical History Cardiovascular: CHF, HTN, Hyperlipidemia Pulmonary: Asthma, COPD, Pulmonary embolus, Other (HEIDI with CPAP) CENTRAL NERVOUS SYSTEM: Other (none) GI: GERD, Other (super morbid obesity) Heme/Onc: Anemia NOS Hepatobiliary: No pertinent hx Psych: Anxiety, Depression Musculoskeletal: Osteoarthritis Infectious disease: No pertinent hx Renal/: UTI, Other (nephrolithiasis) Endocrine: Other (hyperglycemia), hypothyroidism, diabetes mellitus PAST SURGICAL HISTORY Past Surgical History Hernia Repair, Tubal Ligation, Other (right wrist) FAMILY HISTORY Family History: Adopted SOCIAL HISTORY Smoke: No ALCOHOL: none Drugs: None Lives: with Family CURRENT MEDICATIONS CURRENT MEDICATIONS Current Medications Medications (Trade) Dose Ordered Sig/Ron Route PRN Reason Start Time Stop Time Status Last Admin Dose Admin Furosemide (Lasix) 100 mg 1X ONCE IVP 01/16/17 03:30 01/16/17 03:31 DC 01/16/17 03:39 Ondansetron HCl (Zofran) 4 mg PRN Q8HRS PRN IV NAUSEA/VOMITING 01/16/17 03:30 01/17/17 03:29 01/16/17 11:04 ALLERGIES ALLERGIES: Coded Allergies: coconut (Verified Allergy, Intermediate, 04/23/16) povidone-iodine (Verified Allergy, Intermediate, Rash, 12/14/16) Rash, swelling shellfish derived (Verified Allergy, Intermediate, 07/08/14) soap (Verified Allergy, Intermediate, Rash, 12/14/16) Rash, swelling iodine (Verified Adverse Reaction, Severe, Swelling, 12/14/16) throat swells up, tongue swells up, nausea, vomiting morphine (Verified Adverse Reaction, Intermediate, severe nausea and migraine, 07/26/14) PHYSICAL EXAM General: Alert, Oriented X3, Cooperative HEENT: Atraumatic, PERRLA Lungs: Clear to auscultation (thought exam limited by body habitus) Heart: Regular rate, Normal S1, Normal S2, Other (heart tones distant) Abdomen: Soft, Other (morbid obesity) Extremities: Normal pulses Skin: Other (venous stasis changes on legs) Neuro: Normal speech Psych/Mental Status: Mental status NL, Mood NL MUSCULOSKELETAL: No deformity VITALS VITALS Vital Signs Date Time Temp Pulse Resp B/P Pulse Ox O2 Delivery O2 Flow Rate FiO2 01/16/17 06:00 98 132/60 100 Nasal Cannula 3 01/16/17 01:20 97.7 18 97.7 LABS Lab: Laboratory Tests Test 01/16/17 01:45 White Blood Count 8.8x10^3/uL (4.0-11.0) Red Blood Count 3.72x10^6/uL (3.50-5.40) Hemoglobin 10.3g/dL (12.0-15.5) Hematocrit 32.3% (36.0-47.0) Mean Corpuscular Volume 87fL (79-100) Mean Corpuscular Hemoglobin 28pg (25-35) Mean Corpuscular Hemoglobin Concent 32g/dL (31-37) Red Cell Distribution Width 14.9% (11.5-14.5) Platelet Count 322x10^3/uL (140-400) Neutrophils (%) (Auto) 79% (31-73) Lymphocytes (%) (Auto) 14% (24-48) Monocytes (%) (Auto) 4% (0-9) Eosinophils (%) (Auto) 2% (0-3) Basophils (%) (Auto) 1% (0-3) Neutrophils # (Auto) 6.9x10^3uL (1.8-7.7) Lymphocytes # (Auto) 1.2x10^3/uL (1.0-4.8) Monocytes # (Auto) 0.4x10^3/uL (0.0-1.1) Eosinophils # (Auto) 0.2x10^3/uL (0.0-0.7) Basophils # (Auto) 0.1x10^3/uL (0.0-0.2) Prothrombin Time 34.2SEC (11.7-14.0) Prothromb Time International Ratio 3.6 (0.8-1.1) Sodium Level 141mmol/L (136-145) Potassium Level 3.6mmol/L (3.5-5.1) Chloride Level 101mmol/L (98-107) Carbon Dioxide Level 33mmol/L (21-32) Anion Gap 7 (6-14) Blood Urea Nitrogen 5mg/dL (7-20) Creatinine 0.7mg/dL (0.6-1.0) Estimated GFR (Cockcroft-Gault) 110.0 Glucose Level 112mg/dL (70-99) Calcium Level 8.9mg/dL (8.5-10.1) Troponin I Quantitative < 0.017ng/mL (0.000-0.055) MM-Hnh-H-Type Natriuretic Peptide 98pg/mL (0-124) IMAGES IMAGES CXR: Comparison is made to a study from 12/12/2016. The patient positioning is lordotic. There is chronic elevation of the right hemidiaphragm with mild discoid atelectasis in the right parahilar region. The heart is mildly enlarged. The pulmonary vascularity is at the upper limits of normal. No pleural fluid is seen. Similar findings were evident on the previous study. IMPRESSION: 1. Chronic elevation right hemidiaphragm with underlying discoid atelectasis. 2. Borderline vascular congestion ECHOCARDIOGRAM ECHOCARDIOGRAM 07/2016: TTE Limited study to evaluate LV systolic function. Technically difficult study secondary to body habitus. The left ventricle is normal size. Left ventricle systolic function is normal. The Ejection Fraction is 55-60%. There is borderline to mild concentric left ventricular hypertrophy. ASSESSMENT/PLAN ASSESSMENT/PLAN 1. chronic diastolic CHF NT-proBNP and CXR not suggestive of acute CHF resume home diuretics chronic non-compliance with dietary restrictions 2. COPD ? acute symptoms related to this 3. morbid obesity with BMI > 85 per primary service 4. hypothyroidism recent initiation of levothyroxine 5. DM, II last A1C was 07/2016 Problems: LACIE GARCIA MD 01/16/17 1907: CARDIAC CONSULT ALLERGIES ALLERGIES: Coded Allergies: coconut (Verified Allergy, Intermediate, 04/23/16) povidone-iodine (Verified Allergy, Intermediate, Rash, 12/14/16) Rash, swelling shellfish derived (Verified Allergy, Intermediate, 07/08/14) soap (Verified Allergy, Intermediate, Rash, 12/14/16) Rash, swelling iodine (Verified Adverse Reaction, Severe, Swelling, 12/14/16) throat swells up, tongue swells up, nausea, vomiting morphine (Verified Adverse Reaction, Intermediate, severe nausea and migraine, 07/26/14) ASSESSMENT/PLAN ASSESSMENT/PLAN Patient seen and examined. Agree with above nurse practitioner noted. 46-year-old woman known to us from her previous admission presenting with increased swelling in her abdomen. On cardiac examination she has normal heart tones. Significant obesity. Labs and chest x-ray do not suggest severely decompensated heart failure but she does have a mild component of acute on chronic diastolic heart failure. Continue intravenous diuretics. We'll likely need to be discharged on torsemide or Bumex therapy. She will need close outpatient monitoring to ensure that she does not have progressive renal failure with excessive diuresis. Problems: MITCHEL MIR APRN Jan 16, 2017 11:25 LACIE GARCIA MD Jan 16, 2017 19:07
[2017-01-16] MEDS ORDERED: HYDROCODONE/APAP 5/325MG TABLET. PO ONE (11:30)
[2017-01-16] MEDS: PANTOPRAZOLE 40 MG TABLET. PO SCH (12:41)
[2017-01-16 15:00] VITALS: BP 116/62
[2017-01-16] MEDS: FUROSEMIDE 80 MG TABLET PO SCH (18:22)
[2017-01-16 19:00] VITALS: BP 138/76
[2017-01-16] MEDS ORDERED: FURO80TA3 PO (19:19)
[2017-01-16] MEDS ORDERED: GLYB5TAB3 PO (19:19)
[2017-01-16] MEDS ORDERED: LEVO50TA5 PO (19:19)
[2017-01-16] MEDS ORDERED: NON FORMULARY ITEM (Albuterol Sulfate (Proair Hfa Inhaler) 1 PUFF) INH PRN (22:30)
[2017-01-16] MEDS ORDERED: NYSTATIN TOPICAL POWDER 15GM BOTTLE. TP PRN (22:30)
[2017-01-16] MEDS ORDERED: ALBUTEROL SULFATE 2.5 MG/3 ML NEBU. NEB PRN (22:45)
[2017-01-16 23:00] VITALS: BP 125/68
[2017-01-16] MEDS ORDERED: ALPRAZOLAM 1 MG TABLET PO ONE (23:30)
[2017-01-16] MEDS ORDERED: tiZANidine 4 MG TABLET. PO ONE (23:30)
[2017-01-16] MEDS: HYDROCODONE/APAP 10/325 TABLET. PO PRN (23:43)
[2017-01-17 03:00] VITALS: BP 103/62
[2017-01-17 05:33] LABS: INR 3.3 (0.8-1.1); PROTHROMBIN TIME PATIENT 31.8 SEC (11.7-14.0)
[2017-01-17] MEDS: LEVOTHYROXINE 50 MCG TABLET PO SCH (05:47)
[2017-01-17] MEDS: HYDROCODONE/APAP 10/325 TABLET. PO PRN ×3 (05:47→23:47)
[2017-01-17 07:30] VITALS: BP 106/56
[2017-01-17] MEDS ORDERED: FUROSEMIDE 80 MG TABLET PO SCH (09:00)
[2017-01-17] MEDS: PANTOPRAZOLE 40 MG TABLET. PO SCH (09:26)
[2017-01-17] MEDS: POTASSIUM CHLORIDE 20 MEQ TABLET.ER. PO SCH (09:26)
[2017-01-17] MEDS: FUROSEMIDE 80 MG TABLET PO SCH (09:26)
[2017-01-17] MEDS: tiZANidine 4 MG TABLET. PO SCH ×2 (09:27→20:28)
[2017-01-17 10:30] VITALS: BP 103/51
--- NOTE | 2017-01-17 10:55 | PDOC ---
CARDIO Progress Notes Date and Time Date of Service 01/17/2017 Time of Evaluation 1053 Subjective Subjective: No Chest Pain, No Palpitations, No Dizziness, Other (dyspnea improved) Vitals Vitals Vital Signs Date Time Temp Pulse Resp B/P Pulse Ox O2 Delivery O2 Flow Rate FiO2 01/17/17 08:00 Bi-pap 01/17/17 07:38 20 96 3.0 01/17/17 07:30 97.9 76 106/56 97.9 Weight Weight [ ] Input and Output Intake and Output Intake and Output 01/17/17 07:00 Intake Total 2200 ml Output Total 6850 ml Balance -4650 ml Intake Oral 2200 ml Output Urine Total 6850 ml Laboratory Labs Laboratory Tests Test 01/17/17 05:00 Prothrombin Time 31.8SEC (11.7-14.0) Prothromb Time International Ratio 3.3 (0.8-1.1) Physical Exam HEENT: Neck Supple W Full Motion Chest: Symmetric LUNGS: Other (decreased anteriorly) Heart: S1S2 Abdomen: Other (morbid obesity) Extremities: No Edema Neurology: alert, oriented, follow commands Assessment Assessment 1. chronic diastolic CHF continue oral diuresis - convert to Bumex & check labs in a.m. if able to walk with PT, consider d/c warner catheter 2. COPD 3. morbid obesity MITCHEL MIR APRN Jan 17, 2017 10:55
--- NOTE | 2017-01-17 12:28 | PDOC1 ---
History and Physical Date of Admission Date of Admission DATE: 01/17/17 TIME: 12:27 Identification/Chief Complaint Chief Complaint short of breath Source Source: Chart review, Patient History of Present Illness History of Present Illness LATE ENTRY< PT seen 01/16 Ms. Arguelles, is a 46 year old female admitted with dyspnea, chest tightness, and swelling. She has upper thigh and later abd swelling that had worsening over the past few days. She was seen by home physician service, and weight gain, weakness and dyspnea propted EMS to ER visit >20lbs on her home scale over the past 2 weeks. and urine output decreased trouble sleeping with shortness of breath Past Medical History Cardiovascular: CHF, HTN, Hyperlipidemia Pulmonary: Asthma, COPD, Pulmonary embolus, Other CENTRAL NERVOUS SYSTEM: Other GI: GERD, Other Heme/Onc: Anemia NOS Hepatobiliary: No pertinent hx Psych: Anxiety, Depression Musculoskeletal: Osteoarthritis Rheumatologic: No pertinent hx Infectious disease: No pertinent hx Renal/: UTI, Other Endocrine: Other Past Surgical History Past Surgical History: Hernia Repair, Tubal Ligation, Other Family History Family History: Adopted Social History Smoke: No ALCOHOL: none Drugs: None Current Problem List Problem List Problems Medical Problems: (1) CHF (congestive heart failure) Status: Acute (2) SOB (shortness of breath) Status: Acute Problems: Current Medications Current Medications Current Medications Furosemide (Lasix) 100 mg 1X ONCE IVP Last administered on 01/16/17 03:39; Start 01/16/17 at 03:30; Stop 01/16/17 at 03:31; Status DC Ondansetron HCl (Zofran) 4 mg PRN Q8HRS PRN IV NAUSEA/VOMITING Last administered on 01/16/17 11:04; Start 01/16/17 at 03:30; Stop 01/17/17 at 03:29 ; Status DC Acetaminophen (Tylenol) 650 mg PRN Q4HRS PRN PO FEVER; Start 01/16/17 at 03:30 ; Stop 01/17/17 at 03:29; Status DC Pantoprazole Sodium (Protonix) 40 mg DAILYAC PO Last administered on 01/17/17 09:26; Start 01/16/17 at 11:30 Acetaminophen/ Hydrocodone Bitart (Lortab 5/325) 1 tab 1X ONCE PO Last administered on 01/16/17 12:41; Start 01/16/17 at 11:30; Stop 01/16/17 at 11:31 ; Status DC Potassium Chloride (Klor-Con) 40 meq DAILY PO Last administered on 01/17/17 09 :26; Start 01/17/17 at 09:00 Furosemide (Lasix) 80 mg BID92 PO Last administered on 01/17/17 09:26; Start 01/16/17 at 16:00; Stop 01/17/17 at 11:11; Status DC Metolazone (Zaroxolyn) 10 mg Q3DAYS PO ; Start 01/18/17 at 09:00 Furosemide (Lasix) 80 mg BID92 PO ; Start 01/17/17 at 09:00; Status Cancel Acetaminophen/ Hydrocodone Bitart (Lortab 10/325) 1 tab PRN Q6HRS PRN PO pain Last administered on 01/17/17 05:47; Start 01/16/17 at 22:30 Levothyroxine Sodium (Synthroid) 50 mcg DAILY07 PO Last administered on 05:47; Start 01/17/17 at 07:00 Nystatin (Nystop) 1 divya PRN QID PRN TP DRY SKIN / SCALING; Start 01/16/17 at 22 :30 Tizanidine HCl (Zanaflex) 4 mg BID PO Last administered on 01/17/17 09:27; Start 01/17/17 at 09:00 Non-Formulary Medication 1 puff Q4-6HRS PRN INH SHORTNESS OF BREATH; Start 01/16 at 22:30; Status UNV Albuterol Sulfate (Ventolin Neb Soln) 2.5 mg PRN Q4HRS PRN NEB SHORTNESS OF BREATH; Start 01/16/17 at 22:45 Tizanidine HCl (Zanaflex) 4 mg 1X ONCE PO Last administered on 01/16/17 23:42 ; Start 01/16/17 at 23:30; Stop 01/16/17 at 23:31; Status DC Alprazolam (Xanax) 1 mg 1X ONCE PO Last administered on 01/17/17 00:14; Start 01/16/17 at 23:30; Stop 01/16/17 at 23:31; Status DC Bumetanide (Bumex) 1 mg BID92 PO ; Start 01/17/17 at 14:00 Active Scripts Active Reported Furosemide 80 Mg Tablet 80 Mg PO BID Glyburide 5 Mg Tablet 5 Mg PO DAILY Levothyroxine Sodium 50 Mcg Tablet 1 Tab PO DAILY Nystop (Nystatin) 60 Gm Powder 30 Gm TP PRN Fluticasone Propionate Nasal [place] (Fluticasone Propionate) 16 Gm [place].susp 2 [place] NS DAILY Ferrous Sulfate 325 Mg Tablet 1 Tab PO DAILY Klor-Con M20 (Potassium Chloride) 20 Meq Tab.er.prt 2 Tab PO BID Proair Hfa Inhaler (Albuterol Sulfate) 8.5 Gm Hfa.aer.ad 1 Puff INH Q4-6HRS PRN Coumadin (Warfarin Sodium) 2.5 Mg Tablet 4 Mg PO DAILY Prometrium (Progesterone,Micronized) 100 Mg Capsule 1 Cap PO DAILY Xanax (Alprazolam) 2 Mg Tablet 2 Mg PO PRN Q6HRS PRN [place] 10-325 Tablet (Acetaminophen/Hydrocodone Bitart) 1 Each Tablet 1-2 Tab PO Q4-6HRS Tizanidine Hcl 4 Mg Tablet 1 Tab PO BID Allergies Allergies: Coded Allergies: coconut (Verified Allergy, Intermediate, 04/23/16) povidone-iodine (Verified Allergy, Intermediate, Rash, 12/14/16) Rash, swelling shellfish derived (Verified Allergy, Intermediate, 07/08/14) soap (Verified Allergy, Intermediate, Rash, 12/14/16) Rash, swelling iodine (Verified Adverse Reaction, Severe, Swelling, 12/14/16) throat swells up, tongue swells up, nausea, vomiting morphine (Verified Adverse Reaction, Intermediate, severe nausea and migraine, 07/26/14) ROS General: YES: Fatigue, Malaise, No: Appetite, Chills, Night Sweats, Other PSYCHOLOGICAL ROS: No: Anxiety, Behavioral Disorder, Concentration difficultie , Decreased libido, Depression, Disorientation, Hallucinations, Hostility, Memory difficulties, Mood Swings, Obsessive thoughts, Other, Physical abuse, Sexual abuse, Sleep disturbances, Suicidal ideation Eyes: No Blurry vision, No Decreased vision, No Double vision, No Dry eyes, No Excessive tearing, No Eye Pain, No Itchy Eyes, No Loss of vision, No Other, No Photophobia, No Scotomata, No Uses contacts, No Uses glasses HEENT: YES: Heacaches, No: Epistaxis, Hearing change, Nasal congestion, Nasal discharge, Oral lesions, Other, Sinus pain, Sneezing, Snoring, Sore Throat, Tinnitus, Vertigo, Visual Changes, Vocal changes Respiratory: YES: Orthopnea, SOB with excertion, No: Cough, Hemoptysis, Other, Pleuritic Pain, Shortness of breath, Sputum Changes, Stridor, Tachypnea, Wheezing Cardiovascular: yes Edema, yes Orthopnea, No Chest Pain, No Lt Headedness, No Other, No Palpitations, No Paroxysmal Noc. Dyspnea Gastrointestinal: No Abdominal Pain, No Constipation, No Diarrhea, No Hematochezia, No Melena, No Nausea, No Other, No Vomiting Genitourinary: No , No , No , No , No , No , No , No Discharge, No Dysuria, No Flank Pain, No Frequency, No Hematuria, No Incontinence, No Other, No Pain, No Retention, No Urgency Musculoskeletal: Yes Joint Pain Neurological: No Behavorial Changes, No Bowel/Bladder ControlChng, No Confusion , No Dizziness, No Gait Disturbance, No Headaches, No Impaired Coord/balance, No Memory Loss, No Numbness/Tingling, No Other, No Seizures, No Speech Problems , No Tremors, No Visual Changes, No Weakness Skin: No Acne, No Dry Skin, No Eczema, No Hair Changes, No Lumps, No Mole Changes, No Mottling, No Nail Changes, No Other, No Pruritus, No Rash, No Skin Lesion Changes Physical Exam General: Alert, Cooperative, No acute distress, moderate distress HEENT: Mucous membr. moist/pink Lungs: Normal air movement, Other (no rales) Heart: no gallops Abdomen: Soft (very obese, fluid laterally, some abd edema) Rectal Exam: not examined Extremities: No clubbing, Other (1+ LE edema) Skin: No rashes, No breakdown Neuro: Normal tone, Sensation intact Psych/Mental Status: Mental status NL, Mood NL Vitals Vitals Vital Signs Date Time Temp Pulse Resp B/P Pulse Ox O2 Delivery O2 Flow Rate FiO2 01/17/17 10:30 98.4 93 18 103/51 95 Nasal Cannula 3.0 98.4 Labs Labs Laboratory Tests Test 01/16/17 01:45 01/17/17 05:00 White Blood Count 8.8x10^3/uL (4.0-11.0) Red Blood Count 3.72x10^6/uL (3.50-5.40) Hemoglobin 10.3g/dL (12.0-15.5) Hematocrit 32.3% (36.0-47.0) Mean Corpuscular Volume 87fL (79-100) Mean Corpuscular Hemoglobin 28pg (25-35) Mean Corpuscular Hemoglobin Concent 32g/dL (31-37) Red Cell Distribution Width 14.9% (11.5-14.5) Platelet Count 322x10^3/uL (140-400) Neutrophils (%) (Auto) 79% (31-73) Lymphocytes (%) (Auto) 14% (24-48) Monocytes (%) (Auto) 4% (0-9) Eosinophils (%) (Auto) 2% (0-3) Basophils (%) (Auto) 1% (0-3) Neutrophils # (Auto) 6.9x10^3uL (1.8-7.7) Lymphocytes # (Auto) 1.2x10^3/uL (1.0-4.8) Monocytes # (Auto) 0.4x10^3/uL (0.0-1.1) Eosinophils # (Auto) 0.2x10^3/uL (0.0-0.7) Basophils # (Auto) 0.1x10^3/uL (0.0-0.2) Prothrombin Time 34.2SEC (11.7-14.0) 31.8SEC (11.7-14.0) Prothromb Time International Ratio 3.6 (0.8-1.1) 3.3 (0.8-1.1) Sodium Level 141mmol/L (136-145) Potassium Level 3.6mmol/L (3.5-5.1) Chloride Level 101mmol/L (98-107) Carbon Dioxide Level 33mmol/L (21-32) Anion Gap 7 (6-14) Blood Urea Nitrogen 5mg/dL (7-20) Creatinine 0.7mg/dL (0.6-1.0) Estimated GFR (Cockcroft-Gault) 110.0 Glucose Level 112mg/dL (70-99) Calcium Level 8.9mg/dL (8.5-10.1) Troponin I Quantitative < 0.017ng/mL (0.000-0.055) CS-Dky-B-Type Natriuretic Peptide 98pg/mL (0-124) Laboratory Tests Test 01/17/17 05:00 Prothrombin Time 31.8SEC (11.7-14.0) Prothromb Time International Ratio 3.3 (0.8-1.1) VTE Prophylaxis Ordered VTE Prophylaxis Devices: Yes VTE Pharmacological Prophylaxi: Yes Assessment/Plan Assessment/Plan acute exacerbation of chronic diastolic CHF IV lasix - CV consult COPD, asthma, - increase nebs chronic resp acidosis, pickwickian super- morbid obesity, BMI 86 . Weakness and debility LUZ MARINA GODINEZ MD Jan 17, 2017 12:27
--- NOTE | 2017-01-17 12:31 | PDOC ---
PROGRESS NOTES Chief Complaint Chief Complaint 1. acute on chronic diastolic CHF additional IV lasix X1, pt has anasarca more than LE edema, due to habitus 2. COPD, asthma, stable 3. super morbid obesity, BMI 86 4. Weakness and debility, uses bedside commode at home, mostly home bound, has visiting home physician History of Present Illness History of Present Illness eating a salad feeling a little better, still dyspneic Vitals Vitals Vital Signs Date Time Temp Pulse Resp B/P Pulse Ox O2 Delivery O2 Flow Rate FiO2 01/17/17 10:30 98.4 93 18 103/51 95 Nasal Cannula 3.0 98.4 Physical Exam General: Alert, Oriented X3, Cooperative, No acute distress Heart: Regular rate, Normal S1, Normal S2, No murmurs, Other (heart tones distant) Lungs: Clear Abdomen: Soft, Other (morbid obesity) Extremities: No cyanosis, Normal pulses, Other (1+ LE edema) Skin: No rashes, Other (venous stasis changes on legs) Labs LABS Laboratory Tests Test 01/17/17 05:00 Prothrombin Time 31.8SEC (11.7-14.0) Prothromb Time International Ratio 3.3 (0.8-1.1) Review of Systems Review of Systems some weakness some dyspnea she complains of thigh swelling, abd swelling Assessment and Plan Assessmemt and Plan Problems Medical Problems: (1) CHF (congestive heart failure) Status: Acute (2) SOB (shortness of breath) Status: Acute Problems: Comment Review of Relevant I have reviewed the following items kayleigh (where applicable) has been applied. Labs Laboratory Tests Test 01/16/17 01:45 01/17/17 05:00 White Blood Count 8.8x10^3/uL (4.0-11.0) Red Blood Count 3.72x10^6/uL (3.50-5.40) Hemoglobin 10.3g/dL (12.0-15.5) Hematocrit 32.3% (36.0-47.0) Mean Corpuscular Volume 87fL (79-100) Mean Corpuscular Hemoglobin 28pg (25-35) Mean Corpuscular Hemoglobin Concent 32g/dL (31-37) Red Cell Distribution Width 14.9% (11.5-14.5) Platelet Count 322x10^3/uL (140-400) Neutrophils (%) (Auto) 79% (31-73) Lymphocytes (%) (Auto) 14% (24-48) Monocytes (%) (Auto) 4% (0-9) Eosinophils (%) (Auto) 2% (0-3) Basophils (%) (Auto) 1% (0-3) Neutrophils # (Auto) 6.9x10^3uL (1.8-7.7) Lymphocytes # (Auto) 1.2x10^3/uL (1.0-4.8) Monocytes # (Auto) 0.4x10^3/uL (0.0-1.1) Eosinophils # (Auto) 0.2x10^3/uL (0.0-0.7) Basophils # (Auto) 0.1x10^3/uL (0.0-0.2) Prothrombin Time 34.2SEC (11.7-14.0) 31.8SEC (11.7-14.0) Prothromb Time International Ratio 3.6 (0.8-1.1) 3.3 (0.8-1.1) Sodium Level 141mmol/L (136-145) Potassium Level 3.6mmol/L (3.5-5.1) Chloride Level 101mmol/L (98-107) Carbon Dioxide Level 33mmol/L (21-32) Anion Gap 7 (6-14) Blood Urea Nitrogen 5mg/dL (7-20) Creatinine 0.7mg/dL (0.6-1.0) Estimated GFR (Cockcroft-Gault) 110.0 Glucose Level 112mg/dL (70-99) Calcium Level 8.9mg/dL (8.5-10.1) Troponin I Quantitative < 0.017ng/mL (0.000-0.055) LE-Cwh-F-Type Natriuretic Peptide 98pg/mL (0-124) Laboratory Tests Test 01/17/17 05:00 Prothrombin Time 31.8SEC (11.7-14.0) Prothromb Time International Ratio 3.3 (0.8-1.1) Medications Current Medications Furosemide (Lasix) 100 mg 1X ONCE IVP Last administered on 01/16/17t 03:39; Start 01/16/17 at 03:30; Stop 01/16/17 at 03:31; Status DC Ondansetron HCl (Zofran) 4 mg PRN Q8HRS PRN IV NAUSEA/VOMITING Last administered on 01/16/17 11:04; Start 01/16/17 at 03:30; Stop 01/17/17 at 03:29 ; Status DC Acetaminophen (Tylenol) 650 mg PRN Q4HRS PRN PO FEVER; Start 01/16/17 at 03:30 ; Stop 01/17/17 at 03:29; Status DC Pantoprazole Sodium (Protonix) 40 mg DAILYAC PO Last administered on 01/17/17 09:26; Start 01/16/17 at 11:30 Acetaminophen/ Hydrocodone Bitart (Lortab 5/325) 1 tab 1X ONCE PO Last administered on 01/16/17 12:41; Start 01/16/17 at 11:30; Stop 01/16/17 at 11:31 ; Status DC Potassium Chloride (Klor-Con) 40 meq DAILY PO Last administered on 01/17/17 09 :26; Start 01/17/17 at 09:00 Furosemide (Lasix) 80 mg BID92 PO Last administered on 01/17/17 09:26; Start 01/16/17 at 16:00; Stop 01/17/17 at 11:11; Status DC Metolazone (Zaroxolyn) 10 mg Q3DAYS PO ; Start 01/18/17 at 09:00 Furosemide (Lasix) 80 mg BID92 PO ; Start 01/17/17 at 09:00; Status Cancel Acetaminophen/ Hydrocodone Bitart (Lortab 10/325) 1 tab PRN Q6HRS PRN PO pain Last administered on 01/17/17 05:47; Start 01/16/17 at 22:30 Levothyroxine Sodium (Synthroid) 50 mcg DAILY07 PO Last administered on 05:47; Start 01/17/17 at 07:00 Nystatin (Nystop) 1 divya PRN QID PRN TP DRY SKIN / SCALING; Start 01/16/17 at 22 :30 Tizanidine HCl (Zanaflex) 4 mg BID PO Last administered on 01/17/17 09:27; Start 01/17/17 at 09:00 Non-Formulary Medication 1 puff Q4-6HRS PRN INH SHORTNESS OF BREATH; Start 01/16 at 22:30; Status UNV Albuterol Sulfate (Ventolin Neb Soln) 2.5 mg PRN Q4HRS PRN NEB SHORTNESS OF BREATH; Start 01/16/17 at 22:45 Tizanidine HCl (Zanaflex) 4 mg 1X ONCE PO Last administered on 01/16/17t 23:42 ; Start 01/16/17 at 23:30; Stop 01/16/17 at 23:31; Status DC Alprazolam (Xanax) 1 mg 1X ONCE PO Last administered on 01/17/17 00:14; Start 01/16/17 at 23:30; Stop 01/16/17 at 23:31; Status DC Bumetanide (Bumex) 1 mg BID92 PO ; Start 01/17/17 at 14:00 Active Scripts Active Reported Furosemide 80 Mg Tablet 80 Mg PO BID Glyburide 5 Mg Tablet 5 Mg PO DAILY Levothyroxine Sodium 50 Mcg Tablet 1 Tab PO DAILY Nystop (Nystatin) 60 Gm Powder 30 Gm TP PRN Fluticasone Propionate Nasal [place] (Fluticasone Propionate) 16 Gm [place].susp 2 [place] NS DAILY Ferrous Sulfate 325 Mg Tablet 1 Tab PO DAILY Klor-Con M20 (Potassium Chloride) 20 Meq Tab.er.prt 2 Tab PO BID Proair Hfa Inhaler (Albuterol Sulfate) 8.5 Gm Hfa.aer.ad 1 Puff INH Q4-6HRS PRN Coumadin (Warfarin Sodium) 2.5 Mg Tablet 4 Mg PO DAILY Prometrium (Progesterone,Micronized) 100 Mg Capsule 1 Cap PO DAILY Xanax (Alprazolam) 2 Mg Tablet 2 Mg PO PRN Q6HRS PRN [place] 10-325 Tablet (Acetaminophen/Hydrocodone Bitart) 1 Each Tablet 1-2 Tab PO Q4-6HRS Tizanidine Hcl 4 Mg Tablet 1 Tab PO BID Vitals/I & O Vital Sign - Last 24 Hours 01/16/17 01/16/17 01/16/17 01/16/17 12:41 13:45 14:00 15:00 Temp 98.6 98.6 Pulse 103 Resp 21 B/P 116/62 Pulse Ox 97 O2 Delivery Nasal Cannula Room Air Nasal Cannula Room Air O2 Flow Rate 3.0 3.0 3.0 01/16/17 01/16/17 01/16/17 01/16/17 19:00 20:00 23:00 23:43 Temp 98.2 98.2 98.2 98.2 Pulse 86 96 Resp 18 20 18 B/P 138/76 125/68 Pulse Ox 97 97 O2 Delivery Nasal Cannula Nasal Cannula Nasal Cannula Room Air O2 Flow Rate 3.0 3.0 3.0 01/17/17 01/17/17 01/17/17 01/17/17 00:08 02:10 03:00 04:28 Temp 98.6 98.6 Pulse 73 Resp 20 B/P 103/62 Pulse Ox 96 97 96 O2 Delivery BiPAP/CPAP BiPAP/CPAP Nasal Cannula BiPAP/CPAP O2 Flow Rate 3.0 01/17/17 01/17/17 01/17/17 01/17/17 05:47 07:30 07:38 08:00 Temp 97.9 97.9 Pulse 76 Resp 17 20 B/P 106/56 Pulse Ox 96 100 96 O2 Delivery BiPAP/CPAP BiPAP/CPAP BiPAP/CPAP Bi-pap O2 Flow Rate 3.0 3.0 01/17/17 10:30 Temp 98.4 98.4 Pulse 93 Resp 18 B/P 103/51 Pulse Ox 95 O2 Delivery Nasal Cannula O2 Flow Rate 3.0 Intake and Output 01/16/17 01/16/17 01/17/17 15:00 23:00 07:00 Intake Total 500 ml 1700 ml Output Total 4950 ml 1900 ml Balance -4450 ml 1700 ml -1900 ml LUZ MARINA GODINEZ MD Jan 17, 2017 12:31
[2017-01-17] MEDS ORDERED: FUROSEMIDE 40 MG/4 ML VIAL IVP ONE (13:00)
[2017-01-17] MEDS ORDERED: BUMETANIDE 1 MG TABLET PO SCH (14:00)
[2017-01-17 14:40] VITALS: BP 115/65
[2017-01-17 19:00] VITALS: BP 107/54
[2017-01-17] MEDS ORDERED: ALPRAZOLAM 1 MG TABLET PO PRN (20:45)
[2017-01-17] MEDS: DIPHENHYDRAMINE HCL 25 MG CAPSULE PO PRN (21:51)
[2017-01-17 22:55] VITALS: BP 105/55
[2017-01-18 02:48] VITALS: BP 94/50
[2017-01-18 05:45] LABS: CALCIUM 8.4 mg/dL (8.5-10.1); CREATININE 0.8 mg/dL (0.6-1.0); GFR 94.3; MAGNESIUM 1.8 mg/dL (1.8-2.4); POTASSIUM 3.5 mmol/L (3.5-5.1)
[2017-01-18] MEDS: HYDROCODONE/APAP 10/325 TABLET. PO PRN ×2 (06:02→23:09)
[2017-01-18] MEDS: LEVOTHYROXINE 50 MCG TABLET PO SCH (06:02)
[2017-01-18 06:47] LABS: PROTHROMBIN TIME PATIENT 29.3 SEC (11.7-14.0)
[2017-01-18 07:00] VITALS: BP 111/60
[2017-01-18] MEDS: PANTOPRAZOLE 40 MG TABLET. PO SCH (08:25)
[2017-01-18] MEDS: METOLAZONE 2.5 MG TABLET PO SCH (08:25)
[2017-01-18] MEDS: tiZANidine 4 MG TABLET. PO SCH ×3 (08:26→23:09)
[2017-01-18] MEDS: DIPHENHYDRAMINE HCL 25 MG CAPSULE PO PRN (08:26)
[2017-01-18] MEDS: POTASSIUM CHLORIDE 20 MEQ TABLET.ER. PO SCH (08:26)
[2017-01-18] MEDS ORDERED: BUMETANIDE 1 MG TABLET. PO SCH (09:00)
--- NOTE | 2017-01-18 10:20 | PDOC ---
CARDIO Progress Notes Date and Time Date of Service 01/18/2017 Time of Evaluation 1011 Subjective Subjective: No Chest Pain, No Palpitations, No Dizziness Comments: now with pruritis with bumex Vitals Vitals Vital Signs Date Time Temp Pulse Resp B/P Pulse Ox O2 Delivery O2 Flow Rate FiO2 01/18/17 07:10 20 96 Nasal Cannula 3.0 01/18/17 07:00 98.3 90 111/60 98.3 Weight Weight [ ] Input and Output Intake and Output Intake and Output 01/18/17 07:00 Intake Total 1700 ml Output Total 4350 ml Balance -2650 ml Intake Oral 1700 ml Output Urine Total 4350 ml Laboratory Labs Laboratory Tests Test 01/18/17 04:30 01/18/17 06:30 Sodium Level 142mmol/L (136-145) Potassium Level 3.5mmol/L (3.5-5.1) Chloride Level 102mmol/L (98-107) Carbon Dioxide Level 38mmol/L (21-32) Anion Gap 2 (6-14) Blood Urea Nitrogen 4mg/dL (7-20) Creatinine 0.8mg/dL (0.6-1.0) Estimated GFR (Cockcroft-Gault) 94.3 Glucose Level 116mg/dL (70-99) Calcium Level 8.4mg/dL (8.5-10.1) Magnesium Level 1.8mg/dL (1.8-2.4) Prothrombin Time 29.3SEC (11.7-14.0) Prothromb Time International Ratio 3.0 (0.8-1.1) Physical Exam HEENT: Neck Supple W Full Motion Chest: Symmetric LUNGS: Clear to Auscultation (clear posteriorly; no crackles) Heart: S1S2, RRR, no gallops Abdomen: Other (morbid obesity) Extremities: No Edema Neurology: alert, oriented, follow commands Assessment Assessment 1. chronic diastolic CHF has diuresed 7.3 liters since admission; but weight up 11#; needs standing scale weight continue oral diuresis - pruritus with Bumex; change to torsemide check labs in a.m. if able to walk with PT, consider d/c warner catheter 2. COPD 3. morbid obesity denies eating outside food MITCHEL MIR APRN Jan 18, 2017 10:20
[2017-01-18 11:05] VITALS: BP 106/59
[2017-01-18] MEDS: TORSEMIDE 20 MG TABLET. PO SCH (11:40)
[2017-01-18 14:41] VITALS: BP 112/67
[2017-01-18] MEDS ORDERED: BUPIVACAINE MPF 0.25% 10 ML VIAL. IJ ONE (17:45)
[2017-01-18] MEDS ORDERED: methylPREDNISolone ACETATE 80 MG/ML VIAL. IM ONE ×2 (17:45)
[2017-01-18 19:59] VITALS: BP 132/72
[2017-01-18 22:40] VITALS: BP 164/87
--- NOTE | 2017-01-19 01:06 | CONS ---
DATE OF CONSULTATION: 01/18/2017 ATTENDING PHYSICIAN: Dr. Scott. The patient was seen at the request of Dr. Scott for rehab evaluation. HISTORY OF PRESENT ILLNESS: This is a 46-year-old female admitted with dyspnea, chest tightness and swelling, upper thigh and lateral abdominal wall swelling, which had worsened over the past few days. She was seen by her family physician. Weight gain, and dyspnea prompted her to come to the Emergency Room by emergency medical service. She apparently gained about 20 pounds on home scale over the past 2 weeks. Urine output has decreased, trouble sleeping and shortness of breath. PAST MEDICAL HISTORY: Significant for congestive heart failure, hypertension, hyperlipidemia, asthmatic bronchitis, chronic obstructive pulmonary disease, pulmonary embolism, gastroesophageal reflux disease, anemia, depression, anxiety, osteoarthritis, urinary tract infection, status post hernia repair, tubal ligation. The patient is adopted. She does not smoke. 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 ALLERGIES: SHE IS KNOWN ALLERGIC TO BUMETANIDE, COCONUT, IODINE, MORPHINE, SHELLFISH DERIVED SOAP. She had a chest x-ray done on 01/16/2017, which revealed chronic elevation of right hemidiaphragm with underlying discoid atelectasis, borderline vascular congestion. The patient being followed by Cardiology. They diagnosed her as having chronic diastolic congestive heart failure, chronic noncompliance with restrictions, hypothyroidism, diabetes mellitus, last A1c was 7 in 07/2016. The patient complains of pain in her knees and would like to have cortisone injections. Last time she had them injected is in May of last year. The patient had few steps to enter the house. No steps from the back. PHYSICAL EXAMINATION: Today revealed young female. The patient is morbidly obese. She is alert, oriented to time, place, person and circumstance and follows commands appropriately. She had 4+/5 grade muscle strength overall. Deep tendon reflexes are absent at both knees and ankles. She had equal perception of touch and pinprick sensation bilaterally. She had crepitus on range of motion of her knee joints. I have not tested her transfers or ambulation skills at the present time. She is being followed by physical therapy, but she refused to get up today. 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 RECOMMENDATIONS: At her request, I have injected both knees under aseptic skin technique after skin prepped using alcohol swab with Marcaine and Depo-Medrol solution and she tolerated the procedure satisfactorily without any side effects. Dr. Scott, I appreciate asking me to participate in the care of this interesting patient. I will be glad to follow her with you as needed for her rehabilitation. DENISE GERBER MD DR: NAKIA/georgette JOB#: [id number] / [id number]
[2017-01-19 03:00] VITALS: BP 110/53
[2017-01-19] MEDS: LEVOTHYROXINE 50 MCG TABLET PO SCH (06:55)
[2017-01-19] MEDS: HYDROCODONE/APAP 10/325 TABLET. PO PRN ×2 (06:55→18:35)
[2017-01-19 07:00] VITALS: BP 128/75
[2017-01-19] MEDS: PANTOPRAZOLE 40 MG TABLET. PO SCH (08:00)
[2017-01-19 08:34] LABS: CREATININE 0.6 mg/dL (0.6-1.0); GFR 131.4; POTASSIUM 4.6 mmol/L (3.5-5.1)
[2017-01-19 08:57] LABS: INR 2.4 (0.8-1.1); PROTHROMBIN TIME PATIENT 24.9 SEC (11.7-14.0)
--- NOTE | 2017-01-19 09:17 | PDOC ---
FAREED CASSIDY [employer]CIAL [employer]UD[employer]OR 01/19/17 0917: CARDIO Progress Notes Date and Time Date of Service 01/19/2017 Time of Evaluation 0900 Subjective Subjective: No Chest Pain, No Palpitations, No Dizziness, Other (SOA much better than yesterday) Vitals Vitals Vital Signs Date Time Temp Pulse Resp B/P Pulse Ox O2 Delivery O2 Flow Rate FiO2 01/19/17 06:55 20 94 Nasal Cannula 3.0 01/19/17 03:00 98.2 83 110/53 98.2 Weight Weight [ ] Input and Output Intake and Output Intake and Output 01/19/17 07:00 Intake Total 1840 ml Output Total 5750 ml Balance -3910 ml Intake Oral 1840 ml Output Urine Total 5750 ml Laboratory Labs Laboratory Tests Test 01/19/17 07:35 Prothrombin Time 24.9SEC (11.7-14.0) Prothromb Time International Ratio 2.4 (0.8-1.1) Sodium Level 140mmol/L (136-145) Potassium Level 4.6mmol/L (3.5-5.1) Chloride Level 97mmol/L (98-107) Carbon Dioxide Level 36mmol/L (21-32) Anion Gap 7 (6-14) Blood Urea Nitrogen 5mg/dL (7-20) Creatinine 0.6mg/dL (0.6-1.0) Estimated GFR (Cockcroft-Gault) 131.4 Glucose Level 98mg/dL (70-99) Calcium Level 9.0mg/dL (8.5-10.1) Physical Exam HEENT: Neck Supple W Full Motion Chest: Symmetric LUNGS: Clear to Auscultation, Other (diminished bases unable to appreciate due to body habitus) Heart: S1S2, RRR (SR no significant rhythm ectopies) Abdomen: Other (morbid obesity) Extremities: No Calf Tenderness Neurology: alert, oriented, follow commands Assessment Assessment 1. Chronic diastolic CHF Likely inaccurate weighing via bed scale Unchanged weight despite significant diurese. Clinically compensated. Continue with torsemide/metolazone Nothing further at this time, call if any questions 2. COPD with hx of PE Coumadin has been held due to high INR. INR today 2.4 Defer anticoagulation to PCP 3. morbid obesity denies eating outside food LACIE GARCIA MD 01/19/17 1007: CARDIO Progress Notes Plan Plan Pt. seen and examined. Agree with above [employer] note. No acute events. Feels better since admission. Given her obesity, difficult to tell if she has had significant decrease in her edema labs reviewed. Supportive care. Continue diuresis When closer to DC, stop metolazone and continue torsemide. Poor prognosis. FAREED CASSIDY APRN Jan 19, 2017 09:17 LACIE GARCIA MD Jan 19, 2017 10:07
[2017-01-19] MEDS: tiZANidine 4 MG TABLET. PO SCH ×2 (09:29→21:03)
[2017-01-19] MEDS: TORSEMIDE 20 MG TABLET. PO SCH (09:29)
[2017-01-19] MEDS: POTASSIUM CHLORIDE 20 MEQ TABLET.ER. PO SCH (09:30)
--- NOTE | 2017-01-19 09:49 | PDOC ---
PROGRESS NOTES Subjective Subjective She feels better with her knee joint pain since injections. Objective Objective Vital Signs Date Time Temp Pulse Resp B/P Pulse Ox O2 Delivery O2 Flow Rate FiO2 01/19/17 06:55 20 94 Nasal Cannula 3.0 01/19/17 03:00 98.2 83 110/53 98.2 Intake and Output 01/19/17 07:00 Intake Total 1840 ml Output Total 5750 ml Balance -3910 ml Intake Oral 1840 ml Output Urine Total 5750 ml Physical Exam Physical Exam She is sitting up on commode chair. Assessment Assessment Problems Medical Problems: (1) CHF (congestive heart failure) Status: Acute (2) SOB (shortness of breath) Status: Acute Plan Plan of Care To get her up as tolerated. Comment Review of Relevant I have reviewed the following items kayleigh (where applicable) has been applied. Labs Laboratory Tests Test 01/18/17 04:30 01/18/17 06:30 01/19/17 07:35 Sodium Level 142mmol/L (136-145) 140mmol/L (136-145) Potassium Level 3.5mmol/L (3.5-5.1) 4.6mmol/L (3.5-5.1) Chloride Level 102mmol/L (98-107) 97mmol/L (98-107) Carbon Dioxide Level 38mmol/L (21-32) 36mmol/L (21-32) Anion Gap 2 (6-14) 7 (6-14) Blood Urea Nitrogen 4mg/dL (7-20) 5mg/dL (7-20) Creatinine 0.8mg/dL (0.6-1.0) 0.6mg/dL (0.6-1.0) Estimated GFR (Cockcroft-Gault) 94.3 131.4 Glucose Level 116mg/dL (70-99) 98mg/dL (70-99) Calcium Level 8.4mg/dL (8.5-10.1) 9.0mg/dL (8.5-10.1) Magnesium Level 1.8mg/dL (1.8-2.4) Prothrombin Time 29.3SEC (11.7-14.0) 24.9SEC (11.7-14.0) Prothromb Time International Ratio 3.0 (0.8-1.1) 2.4 (0.8-1.1) Laboratory Tests Test 01/19/17 07:35 Prothrombin Time 24.9SEC (11.7-14.0) Prothromb Time International Ratio 2.4 (0.8-1.1) Sodium Level 140mmol/L (136-145) Potassium Level 4.6mmol/L (3.5-5.1) Chloride Level 97mmol/L (98-107) Carbon Dioxide Level 36mmol/L (21-32) Anion Gap 7 (6-14) Blood Urea Nitrogen 5mg/dL (7-20) Creatinine 0.6mg/dL (0.6-1.0) Estimated GFR (Cockcroft-Gault) 131.4 Glucose Level 98mg/dL (70-99) Calcium Level 9.0mg/dL (8.5-10.1) Medications Current Medications Furosemide (Lasix) 100 mg 1X ONCE IVP Last administered on 01/16/17 03:39; Start 01/16/17 at 03:30; Stop 01/16/17 at 03:31; Status DC Ondansetron HCl (Zofran) 4 mg PRN Q8HRS PRN IV NAUSEA/VOMITING Last administered on 01/16/17 11:04; Start 01/16/17 at 03:30; Stop 01/17/17 at 03:29 ; Status DC Acetaminophen (Tylenol) 650 mg PRN Q4HRS PRN PO FEVER; Start 01/16/17 at 03:30 ; Stop 01/17/17 at 03:29; Status DC Pantoprazole Sodium (Protonix) 40 mg DAILYAC PO Last administered on 01/19/17 08:00; Start 01/16/17 at 11:30 Acetaminophen/ Hydrocodone Bitart (Lortab 5/325) 1 tab 1X ONCE PO Last administered on 01/16/17 12:41; Start 01/16/17 at 11:30; Stop 01/16/17 at 11:31 ; Status DC Potassium Chloride (Klor-Con) 40 meq DAILY PO Last administered on 01/19/17 09 :30; Start 01/17/17 at 09:00 Furosemide (Lasix) 80 mg BID92 PO Last administered on 01/17/17 09:26; Start 01/16/17 at 16:00; Stop 01/17/17 at 11:11; Status DC Metolazone (Zaroxolyn) 10 mg Q3DAYS PO Last administered on 01/18/17 08:25; Start 01/18/17 at 09:00 Furosemide (Lasix) 80 mg BID92 PO ; Start 01/17/17 at 09:00; Status Cancel Acetaminophen/ Hydrocodone Bitart (Lortab 10/325) 1 tab PRN Q6HRS PRN PO pain Last administered on 01/19/17 06:55; Start 01/16/17 at 22:30 Levothyroxine Sodium (Synthroid) 50 mcg DAILY07 PO Last administered on 06:55; Start 01/17/17 at 07:00 Nystatin (Nystop) 1 divya PRN QID PRN TP DRY SKIN / SCALING; Start 01/16/17 at 22 :30 Tizanidine HCl (Zanaflex) 4 mg BID PO Last administered on 01/19/17 09:29; Start 01/17/17 at 09:00 Non-Formulary Medication 1 puff Q4-6HRS PRN INH SHORTNESS OF BREATH; Start 01/16 at 22:30; Status UNV Albuterol Sulfate (Ventolin Neb Soln) 2.5 mg PRN Q4HRS PRN NEB SHORTNESS OF BREATH; Start 01/16/17 at 22:45 Tizanidine HCl (Zanaflex) 4 mg 1X ONCE PO Last administered on 01/16/17 23:42 ; Start 01/16/17 at 23:30; Stop 01/16/17 at 23:31; Status DC Alprazolam (Xanax) 1 mg 1X ONCE PO Last administered on 01/17/17 00:14; Start 01/16/17 at 23:30; Stop 01/16/17 at 23:31; Status DC Bumetanide (Bumex) 1 mg BID92 PO Last administered on 01/17/17 13:04; Start at 14:00; Stop 01/17/17 at 15:32; Status DC Furosemide (Lasix) 40 mg 1X ONCE IVP Last administered on 01/17/17 13:04; Start 01/17/17 at 13:00; Stop 01/17/17 at 13:01; Status DC Bumetanide (Bumex) 1 mg BID92 PO ; Start 01/18/17 at 09:00; Stop 01/18/17 at 09: 00; Status DC Diphenhydramine HCl (Benadryl) 50 mg PRN Q6HRS PRN PO ITCHING Last administered on 01/18/17 08:26; Start 01/17/17 at 20:45 Alprazolam (Xanax) 2 mg PRN Q8HRS PRN PO ANXIETY / AGITATION Last administered on 01/17/17 23:46; Start 01/17/17 at 20:45 Torsemide (Demadex) 20 mg DAILY PO Last administered on 01/19/17 09:29; Start 01/18/17 at 10:15 Methylprednisolone Acetate (Depo-Medrol 80mg Vial) 80 mg 1X ONCE IM ; Start at 17:45; Stop 01/18/17 at 17:46; Status DC Methylprednisolone Acetate (Depo-Medrol 80mg Vial) 80 mg 1X ONCE IM ; Start at 17:45; Stop 01/18/17 at 17:46; Status DC Bupivacaine HCl (Sensorcaine-Mpf 0.25%) 10 ml 1X ONCE IJ ; Start 01/18/17 at 17 :45; Stop 01/18/17 at 17:46; Status DC Active Scripts Active Reported Furosemide 80 Mg Tablet 80 Mg PO BID Glyburide 5 Mg Tablet 5 Mg PO DAILY Levothyroxine Sodium 50 Mcg Tablet 1 Tab PO DAILY Nystop (Nystatin) 60 Gm Powder 30 Gm TP PRN Fluticasone Propionate Nasal [place] (Fluticasone Propionate) 16 Gm [place].susp 2 [place] NS DAILY Ferrous Sulfate 325 Mg Tablet 1 Tab PO DAILY Klor-Con M20 (Potassium Chloride) 20 Meq Tab.er.prt 2 Tab PO BID Proair Hfa Inhaler (Albuterol Sulfate) 8.5 Gm Hfa.aer.ad 1 Puff INH Q4-6HRS PRN Coumadin (Warfarin Sodium) 2.5 Mg Tablet 4 Mg PO DAILY Prometrium (Progesterone,Micronized) 100 Mg Capsule 1 Cap PO DAILY Xanax (Alprazolam) 2 Mg Tablet 2 Mg PO PRN Q6HRS PRN [place] 10-325 Tablet (Acetaminophen/Hydrocodone Bitart) 1 Each Tablet 1-2 Tab PO Q4-6HRS Tizanidine Hcl 4 Mg Tablet 1 Tab PO BID Vitals/I & O Vital Sign - Last 24 Hours 01/18/17 01/18/17 01/18/17 01/18/17 11:05 14:41 19:43 19:59 Temp 98.1 98.1 97.7 98.1 98.1 97.7 Pulse 85 88 90 Resp 19 20 19 B/P 106/59 112/67 132/72 Pulse Ox 94 95 100 O2 Delivery Nasal Cannula Nasal Cannula BiPAP/CPAP BiPAP/CPAP O2 Flow Rate 3.0 3.0 01/18/17 01/18/17 01/18/17 01/18/17 20:15 22:09 22:40 23:09 Temp 97.7 97.7 Pulse 91 Resp 18 B/P 164/87 Pulse Ox 100 100 O2 Delivery Nasal Cannula BiPAP/CPAP BiPAP/CPAP Nasal Cannula O2 Flow Rate 3.0 3.0 01/19/17 01/19/17 01/19/17 01/19/17 00:10 02:38 03:00 04:23 Temp 98.2 98.2 Pulse 83 Resp 19 B/P 110/53 Pulse Ox 100 94 O2 Delivery Nasal Cannula BiPAP/CPAP BiPAP/CPAP BiPAP/CPAP O2 Flow Rate 3.0 01/19/17 06:55 Resp 20 Pulse Ox 94 O2 Delivery Nasal Cannula O2 Flow Rate 3.0 Intake and Output 01/18/17 01/18/17 01/19/17 15:00 23:00 07:00 Intake Total 300 ml 1060 ml 480 ml Output Total 2950 ml 2800 ml Balance 300 ml -1890 ml -2320 ml DENISE GERBER MD Jan 19, 2017 09:49
[2017-01-19 11:00] VITALS: BP 130/75
--- NOTE | 2017-01-19 14:51 | PDOC ---
PROGRESS NOTES Chief Complaint Chief Complaint 1. acute on chronic diastolic CHF, better 2. Anasarca 3. SUper morbidly obese BMI 86 4. HEIDI on CPAP/BIPAP qhs 5 COPD, asthma, stable 6. KNee pain s/p Injections History of Present Illness History of Present Illness NOw shifted to PO torseminde by cards Feels better after knee injections Says she is not quite ready for dc yet - wants to get "more fluid off" Cleared from PT to go home CLaims ambulates There is a bedside commode Requests her progesterone pill On warf for hx PE - claims was told progesterone did not have the same clotting effect as estrogens PLAN Resume warf and xanax and progesterone Home saturday or saturday Accurate I and O Vitals Vitals Vital Signs Date Time Temp Pulse Resp B/P Pulse Ox O2 Delivery O2 Flow Rate FiO2 01/19/17 11:00 98.4 88 18 130/75 98 Nasal Cannula 2.0 98.4 Physical Exam General: Alert, Cooperative, No acute distress, moderate distress Heart: Regular rate, Normal S1, Normal S2, No murmurs, Other (heart tones distant) Lungs: Clear Abdomen: Soft (very obese, fluid laterally, some abd edema) Extremities: No clubbing, Other (1+ LE edema) Skin: No rashes, No breakdown Labs LABS Laboratory Tests Test 01/19/17 07:35 Prothrombin Time 24.9SEC (11.7-14.0) Prothromb Time International Ratio 2.4 (0.8-1.1) Sodium Level 140mmol/L (136-145) Potassium Level 4.6mmol/L (3.5-5.1) Chloride Level 97mmol/L (98-107) Carbon Dioxide Level 36mmol/L (21-32) Anion Gap 7 (6-14) Blood Urea Nitrogen 5mg/dL (7-20) Creatinine 0.6mg/dL (0.6-1.0) Estimated GFR (Cockcroft-Gault) 131.4 Glucose Level 98mg/dL (70-99) Calcium Level 9.0mg/dL (8.5-10.1) Review of Systems Review of Systems no inc in soa, cp, or abd pain, n/v/d Assessment and Plan Assessmemt and Plan Problems Medical Problems: (1) CHF (congestive heart failure) Status: Acute (2) SOB (shortness of breath) Status: Acute Problems: Comment Review of Relevant I have reviewed the following items kayleigh (where applicable) has been applied. Labs Laboratory Tests Test 01/18/17 04:30 01/18/17 06:30 01/19/17 07:35 Sodium Level 142mmol/L (136-145) 140mmol/L (136-145) Potassium Level 3.5mmol/L (3.5-5.1) 4.6mmol/L (3.5-5.1) Chloride Level 102mmol/L (98-107) 97mmol/L (98-107) Carbon Dioxide Level 38mmol/L (21-32) 36mmol/L (21-32) Anion Gap 2 (6-14) 7 (6-14) Blood Urea Nitrogen 4mg/dL (7-20) 5mg/dL (7-20) Creatinine 0.8mg/dL (0.6-1.0) 0.6mg/dL (0.6-1.0) Estimated GFR (Cockcroft-Gault) 94.3 131.4 Glucose Level 116mg/dL (70-99) 98mg/dL (70-99) Calcium Level 8.4mg/dL (8.5-10.1) 9.0mg/dL (8.5-10.1) Magnesium Level 1.8mg/dL (1.8-2.4) Prothrombin Time 29.3SEC (11.7-14.0) 24.9SEC (11.7-14.0) Prothromb Time International Ratio 3.0 (0.8-1.1) 2.4 (0.8-1.1) Laboratory Tests Test 01/19/17 07:35 Prothrombin Time 24.9SEC (11.7-14.0) Prothromb Time International Ratio 2.4 (0.8-1.1) Sodium Level 140mmol/L (136-145) Potassium Level 4.6mmol/L (3.5-5.1) Chloride Level 97mmol/L (98-107) Carbon Dioxide Level 36mmol/L (21-32) Anion Gap 7 (6-14) Blood Urea Nitrogen 5mg/dL (7-20) Creatinine 0.6mg/dL (0.6-1.0) Estimated GFR (Cockcroft-Gault) 131.4 Glucose Level 98mg/dL (70-99) Calcium Level 9.0mg/dL (8.5-10.1) Medications Current Medications Furosemide (Lasix) 100 mg 1X ONCE IVP Last administered on 01/16/17 03:39; Start 01/16/17 at 03:30; Stop 01/16/17 at 03:31; Status DC Ondansetron HCl (Zofran) 4 mg PRN Q8HRS PRN IV NAUSEA/VOMITING Last administered on 01/16/17 11:04; Start 01/16/17 at 03:30; Stop 01/17/17 at 03:29 ; Status DC Acetaminophen (Tylenol) 650 mg PRN Q4HRS PRN PO FEVER; Start 01/16/17 at 03:30 ; Stop 01/17/17 at 03:29; Status DC Pantoprazole Sodium (Protonix) 40 mg DAILYAC PO Last administered on 01/19/17 08:00; Start 01/16/17 at 11:30 Acetaminophen/ Hydrocodone Bitart (Lortab 5/325) 1 tab 1X ONCE PO Last administered on 01/16/17 12:41; Start 01/16/17 at 11:30; Stop 01/16/17 at 11:31 ; Status DC Potassium Chloride (Klor-Con) 40 meq DAILY PO Last administered on 01/19/17 09 :30; Start 01/17/17 at 09:00 Furosemide (Lasix) 80 mg BID92 PO Last administered on 01/17/17 09:26; Start 01/16/17 at 16:00; Stop 01/17/17 at 11:11; Status DC Metolazone (Zaroxolyn) 10 mg Q3DAYS PO Last administered on 01/18/17 08:25; Start 01/18/17 at 09:00 Furosemide (Lasix) 80 mg BID92 PO ; Start 01/17/17 at 09:00; Status Cancel Acetaminophen/ Hydrocodone Bitart (Lortab 10/325) 1 tab PRN Q6HRS PRN PO pain Last administered on 01/19/17 06:55; Start 01/16/17 at 22:30 Levothyroxine Sodium (Synthroid) 50 mcg DAILY07 PO Last administered on 06:55; Start 01/17/17 at 07:00 Nystatin (Nystop) 1 divya PRN QID PRN TP DRY SKIN / SCALING; Start 01/16/17 at 22 :30 Tizanidine HCl (Zanaflex) 4 mg BID PO Last administered on 01/19/17 09:29; Start 01/17/17 at 09:00 Non-Formulary Medication 1 puff Q4-6HRS PRN INH SHORTNESS OF BREATH; Start 01/16 at 22:30; Status UNV Albuterol Sulfate (Ventolin Neb Soln) 2.5 mg PRN Q4HRS PRN NEB SHORTNESS OF BREATH; Start 01/16/17 at 22:45 Tizanidine HCl (Zanaflex) 4 mg 1X ONCE PO Last administered on 01/16/17 23:42 ; Start 01/16/17 at 23:30; Stop 01/16/17 at 23:31; Status DC Alprazolam (Xanax) 1 mg 1X ONCE PO Last administered on 01/17/17 00:14; Start 01/16/17 at 23:30; Stop 01/16/17 at 23:31; Status DC Bumetanide (Bumex) 1 mg BID92 PO Last administered on 01/17/17 13:04; Start at 14:00; Stop 01/17/17 at 15:32; Status DC Furosemide (Lasix) 40 mg 1X ONCE IVP Last administered on 01/17/17 13:04; Start 01/17/17 at 13:00; Stop 01/17/17 at 13:01; Status DC Bumetanide (Bumex) 1 mg BID92 PO ; Start 01/18/17 at 09:00; Stop 01/18/17 at 09: 00; Status DC Diphenhydramine HCl (Benadryl) 50 mg PRN Q6HRS PRN PO ITCHING Last administered on 01/18/17 08:26; Start 01/17/17 at 20:45 Alprazolam (Xanax) 2 mg PRN Q8HRS PRN PO ANXIETY / AGITATION Last administered on 01/17/17 23:46; Start 01/17/17 at 20:45 Torsemide (Demadex) 20 mg DAILY PO Last administered on 01/19/17t 09:29; Start 01/18/17 at 10:15 Methylprednisolone Acetate (Depo-Medrol 80mg Vial) 80 mg 1X ONCE IM ; Start at 17:45; Stop 01/18/17 at 17:46; Status DC Methylprednisolone Acetate (Depo-Medrol 80mg Vial) 80 mg 1X ONCE IM ; Start at 17:45; Stop 01/18/17 at 17:46; Status DC Bupivacaine HCl (Sensorcaine-Mpf 0.25%) 10 ml 1X ONCE IJ ; Start 01/18/17 at 17 :45; Stop 01/18/17 at 17:46; Status DC Active Scripts Active Reported Furosemide 80 Mg Tablet 80 Mg PO BID Glyburide 5 Mg Tablet 5 Mg PO DAILY Levothyroxine Sodium 50 Mcg Tablet 1 Tab PO DAILY Nystop (Nystatin) 60 Gm Powder 30 Gm TP PRN Fluticasone Propionate Nasal [place] (Fluticasone Propionate) 16 Gm [place].susp 2 [place] NS DAILY Ferrous Sulfate 325 Mg Tablet 1 Tab PO DAILY Klor-Con M20 (Potassium Chloride) 20 Meq Tab.er.prt 2 Tab PO BID Proair Hfa Inhaler (Albuterol Sulfate) 8.5 Gm Hfa.aer.ad 1 Puff INH Q4-6HRS PRN Coumadin (Warfarin Sodium) 2.5 Mg Tablet 4 Mg PO DAILY Prometrium (Progesterone,Micronized) 100 Mg Capsule 1 Cap PO DAILY Xanax (Alprazolam) 2 Mg Tablet 2 Mg PO PRN Q6HRS PRN [place] 10-325 Tablet (Acetaminophen/Hydrocodone Bitart) 1 Each Tablet 1-2 Tab PO Q4-6HRS Tizanidine Hcl 4 Mg Tablet 1 Tab PO BID Vitals/I & O Vital Sign - Last 24 Hours 01/18/17 01/18/17 01/18/17 01/18/17 19:43 19:59 20:15 22:09 Temp 97.7 97.7 Pulse 90 Resp 19 B/P 132/72 Pulse Ox 100 O2 Delivery BiPAP/CPAP BiPAP/CPAP Nasal Cannula BiPAP/CPAP O2 Flow Rate 3.0 01/18/17 01/18/17 01/19/17 01/19/17 22:40 23:09 00:10 02:38 Temp 97.7 97.7 Pulse 91 Resp 18 B/P 164/87 Pulse Ox 100 100 100 O2 Delivery BiPAP/CPAP Nasal Cannula Nasal Cannula BiPAP/CPAP O2 Flow Rate 3.0 3.0 01/19/17 01/19/17 01/19/17 01/19/17 03:00 04:23 06:55 07:00 Temp 98.2 98.8 98.2 98.8 Pulse 83 98 Resp 19 18 B/P 110/53 128/75 Pulse Ox 94 94 86 O2 Delivery BiPAP/CPAP BiPAP/CPAP Nasal Cannula Room Air O2 Flow Rate 3.0 01/19/17 01/19/17 01/19/17 07:55 08:00 11:00 Temp 98.4 98.4 Pulse 88 Resp 18 B/P 130/75 Pulse Ox 98 O2 Delivery Nasal Cannula Nasal Cannula O2 Flow Rate 3.0 2.0 Intake and Output 01/18/17 01/18/17 01/19/17 15:00 23:00 07:00 Intake Total 300 ml 1060 ml 480 ml Output Total 2950 ml 2800 ml Balance 300 ml -1890 ml -2320 ml MARILEE KEITA MD Jan 19, 2017 14:51
[2017-01-19] MEDS ORDERED: ALPRAZOLAM 1 MG TABLET PO PRN (15:00)
[2017-01-19] MEDS: FLUTICASONE 50MCG/NASAL SPRAY 16GM BOTTLE. NS SCH (15:22)
[2017-01-19] MEDS: PROGESTERONE, MICRONIZED 100 MG CAPSULE PO SCH (15:22)
[2017-01-19] MEDS: WARFARIN 4 MG TABLET. PO SCH (15:23)
[2017-01-19 15:33] VITALS: BP 107/46
[2017-01-19] MEDS: FERROUS SULFATE 325 MG TABLET PO SCH (17:32)
[2017-01-19 19:00] VITALS: BP 123/58
[2017-01-19 23:00] VITALS: BP 134/78
[2017-01-20 07:00] VITALS: BP 150/80
[2017-01-20] MEDS: LEVOTHYROXINE 50 MCG TABLET PO SCH (07:11)
[2017-01-20] MEDS: PANTOPRAZOLE 40 MG TABLET. PO SCH (07:11)
[2017-01-20 08:14] LABS: INR 2.2 (0.8-1.1); PROTHROMBIN TIME PATIENT 23.2 SEC (11.7-14.0)
[2017-01-20] MEDS: PROGESTERONE, MICRONIZED 100 MG CAPSULE PO SCH (08:44)
[2017-01-20] MEDS: FERROUS SULFATE 325 MG TABLET PO SCH (08:44)
[2017-01-20] MEDS: TORSEMIDE 20 MG TABLET. PO SCH (08:44)
[2017-01-20] MEDS: tiZANidine 4 MG TABLET. PO SCH ×2 (08:44→19:55)
[2017-01-20] MEDS: GLYBURIDE 5 MG TABLET PO SCH (08:44)
[2017-01-20] MEDS: POTASSIUM CHLORIDE 20 MEQ TABLET.ER. PO SCH (08:45)
[2017-01-20] MEDS: FLUTICASONE 50MCG/NASAL SPRAY 16GM BOTTLE. NS SCH (08:45)
[2017-01-20] MEDS: ONDANSETRON PF 4 MG/2 ML VIAL. IV PRN ×2 (09:13→15:09)
[2017-01-20 10:32] VITALS: BP 141/75
--- NOTE | 2017-01-20 13:18 | PDOC ---
PROGRESS NOTES Chief Complaint Chief Complaint 1. acute on chronic diastolic CHF, better 2. Anasarca 3. SUper morbidly obese BMI 86 4. HEIDI on CPAP/BIPAP qhs 5 COPD, asthma, stable 6. KNee pain s/p Injections History of Present Illness History of Present Illness NOw shifted to PO torseminde by cards Feels better after knee injections Says she is not quite ready for dc yet - wants to get "more fluid off" HAs been neg 4 L yesterday, Neg 3 L the day before and neg2 L 2 days ago SOmnolent today got zofran from nausea earlier, back on BIPAP Cleared from PT to go home CLaims ambulates There is a bedside commode Requests her progesterone pill On warf for hx PE - claims was told progesterone did not have the same clotting effect as estrogens PLAN Resume warf and xanax and progesterone Home saturday Accurate I and O BIPAP prn Dw RN Vitals Vitals Vital Signs Date Time Temp Pulse Resp B/P Pulse Ox O2 Delivery O2 Flow Rate FiO2 01/20/17 10:32 97.7 83 20 141/75 98 Nasal Cannula 5.0 97.7 Physical Exam General: Alert, Cooperative, No acute distress, moderate distress Heart: Regular rate, Normal S1, Normal S2, No murmurs, Other (heart tones distant) Lungs: Clear Abdomen: Soft (very obese, fluid laterally, some abd edema) Extremities: No clubbing, Other (1+ LE edema) Skin: No rashes, No breakdown Labs LABS Laboratory Tests Test 01/20/17 07:00 01/20/17 07:25 01/20/17 10:11 Prothrombin Time 23.2SEC (11.7-14.0) Prothromb Time International Ratio 2.2 (0.8-1.1) Glucose (Fingerstick) 102mg/dL (70-99) 115mg/dL (70-99) Review of Systems Review of Systems somnolent - hence limited ROS Assessment and Plan Assessmemt and Plan Problems Medical Problems: (1) CHF (congestive heart failure) Status: Acute (2) SOB (shortness of breath) Status: Acute Problems: Comment Review of Relevant I have reviewed the following items kayleigh (where applicable) has been applied. Labs Laboratory Tests Test 01/19/17 07:35 01/20/17 07:00 01/20/17 07:25 01/20/17 10:11 Prothrombin Time 24.9SEC (11.7-14.0) 23.2SEC (11.7-14.0) Prothromb Time International Ratio 2.4 (0.8-1.1) 2.2 (0.8-1.1) Sodium Level 140mmol/L (136-145) Potassium Level 4.6mmol/L (3.5-5.1) Chloride Level 97mmol/L (98-107) Carbon Dioxide Level 36mmol/L (21-32) Anion Gap 7 (6-14) Blood Urea Nitrogen 5mg/dL (7-20) Creatinine 0.6mg/dL (0.6-1.0) Estimated GFR (Cockcroft-Gault) 131.4 Glucose Level 98mg/dL (70-99) Calcium Level 9.0mg/dL (8.5-10.1) Glucose (Fingerstick) 102mg/dL (70-99) 115mg/dL (70-99) Laboratory Tests Test 01/20/17 07:00 01/20/17 07:25 01/20/17 10:11 Prothrombin Time 23.2SEC (11.7-14.0) Prothromb Time International Ratio 2.2 (0.8-1.1) Glucose (Fingerstick) 102mg/dL (70-99) 115mg/dL (70-99) Medications Current Medications Furosemide (Lasix) 100 mg 1X ONCE IVP Last administered on 01/16/17 03:39; Start 01/16/17 at 03:30; Stop 01/16/17 at 03:31; Status DC Ondansetron HCl (Zofran) 4 mg PRN Q8HRS PRN IV NAUSEA/VOMITING Last administered on 01/16/17 11:04; Start 01/16/17 at 03:30; Stop 01/17/17 at 03:29 ; Status DC Acetaminophen (Tylenol) 650 mg PRN Q4HRS PRN PO FEVER; Start 01/16/17 at 03:30 ; Stop 01/17/17 at 03:29; Status DC Pantoprazole Sodium (Protonix) 40 mg DAILYAC PO Last administered on 01/20/17 07:11; Start 01/16/17 at 11:30 Acetaminophen/ Hydrocodone Bitart (Lortab 5/325) 1 tab 1X ONCE PO Last administered on 01/16/17 12:41; Start 01/16/17 at 11:30; Stop 01/16/17 at 11:31 ; Status DC Potassium Chloride (Klor-Con) 40 meq DAILY PO Last administered on 01/20/17 08 :45; Start 01/17/17 at 09:00 Furosemide (Lasix) 80 mg BID92 PO Last administered on 01/17/17 09:26; Start 01/16/17 at 16:00; Stop 01/17/17 at 11:11; Status DC Metolazone (Zaroxolyn) 10 mg Q3DAYS PO Last administered on 01/18/17 08:25; Start 01/18/17 at 09:00 Furosemide (Lasix) 80 mg BID92 PO ; Start 01/17/17 at 09:00; Status Cancel Acetaminophen/ Hydrocodone Bitart (Lortab 10/325) 1 tab PRN Q6HRS PRN PO pain Last administered on 01/19/17 18:35; Start 01/16/17 at 22:30 Levothyroxine Sodium (Synthroid) 50 mcg DAILY07 PO Last administered on 07:11; Start 01/17/17 at 07:00 Nystatin (Nystop) 1 divya PRN QID PRN TP DRY SKIN / SCALING; Start 01/16/17 at 22 :30 Tizanidine HCl (Zanaflex) 4 mg BID PO Last administered on 01/20/17 08:44; Start 01/17/17 at 09:00 Non-Formulary Medication 1 puff Q4-6HRS PRN INH SHORTNESS OF BREATH; Start 01/16 at 22:30; Status UNV Albuterol Sulfate (Ventolin Neb Soln) 2.5 mg PRN Q4HRS PRN NEB SHORTNESS OF BREATH; Start 01/16/17 at 22:45 Tizanidine HCl (Zanaflex) 4 mg 1X ONCE PO Last administered on 01/16/17 23:42 ; Start 01/16/17 at 23:30; Stop 01/16/17 at 23:31; Status DC Alprazolam (Xanax) 1 mg 1X ONCE PO Last administered on 01/17/17 00:14; Start 01/16/17 at 23:30; Stop 01/16/17 at 23:31; Status DC Bumetanide (Bumex) 1 mg BID92 PO Last administered on 01/17/17 13:04; Start at 14:00; Stop 01/17/17 at 15:32; Status DC Furosemide (Lasix) 40 mg 1X ONCE IVP Last administered on 01/17/17 13:04; Start 01/17/17 at 13:00; Stop 01/17/17 at 13:01; Status DC Bumetanide (Bumex) 1 mg BID92 PO ; Start 01/18/17 at 09:00; Stop 01/18/17 at 09: 00; Status DC Diphenhydramine HCl (Benadryl) 50 mg PRN Q6HRS PRN PO ITCHING Last administered on 01/18/17 08:26; Start 01/17/17 at 20:45 Alprazolam (Xanax) 2 mg PRN Q8HRS PRN PO ANXIETY / AGITATION Last administered on 01/17/17 23:46; Start 01/17/17 at 20:45; Stop 01/20/17 at 12:24; Status DC Torsemide (Demadex) 20 mg DAILY PO Last administered on 01/20/17 08:44; Start 01/18/17 at 10:15 Methylprednisolone Acetate (Depo-Medrol 80mg Vial) 80 mg 1X ONCE IM ; Start at 17:45; Stop 01/18/17 at 17:46; Status DC Methylprednisolone Acetate (Depo-Medrol 80mg Vial) 80 mg 1X ONCE IM ; Start at 17:45; Stop 01/18/17 at 17:46; Status DC Bupivacaine HCl (Sensorcaine-Mpf 0.25%) 10 ml 1X ONCE IJ ; Start 01/18/17 at 17 :45; Stop 01/18/17 at 17:46; Status DC Ferrous Sulfate (Feosol) 325 mg DAILY08 PO Last administered on 01/20/17 08:44 ; Start 01/19/17 at 17:00 Fluticasone Propionate (Flonase) 2 spray DAILY NS Last administered on 08:45; Start 01/19/17 at 15:00 Glyburide (Diabeta) 5 mg DAILY08 PO Last administered on 01/20/17 08:44; Start 01/20/17 at 08:00 Progesterone (Prometrium) 100 mg DAILY PO Last administered on 01/20/17 08:44 ; Start 01/19/17 at 15:00 Warfarin Sodium (Coumadin) 4 mg DAILY16 PO Last administered on 01/19/17 15:23 ; Start 01/19/17 at 16:00 Alprazolam (Xanax) 2 mg PRN Q6HRS PRN PO ANXIETY / AGITATION; Start 01/19/17 at 15:00 Warfarin Sodium (Coumadin Per Physician) 1 each PRN DAILY PRN MC SEE COMMENTS; Start 01/19/17 at 15:00 Ondansetron HCl (Zofran) 4 mg PRN Q6HRS PRN IV NAUSEA/VOMITING Last administered on 01/20/17 09:13; Start 01/20/17 at 09:15 Active Scripts Active Reported Furosemide 80 Mg Tablet 80 Mg PO BID Glyburide 5 Mg Tablet 5 Mg PO DAILY Levothyroxine Sodium 50 Mcg Tablet 1 Tab PO DAILY Nystop (Nystatin) 60 Gm Powder 30 Gm TP PRN Fluticasone Propionate Nasal [place] (Fluticasone Propionate) 16 Gm [place].susp 2 [place] NS DAILY Ferrous Sulfate 325 Mg Tablet 1 Tab PO DAILY Klor-Con M20 (Potassium Chloride) 20 Meq Tab.er.prt 2 Tab PO BID Proair Hfa Inhaler (Albuterol Sulfate) 8.5 Gm Hfa.aer.ad 1 Puff INH Q4-6HRS PRN Coumadin (Warfarin Sodium) 2.5 Mg Tablet 4 Mg PO DAILY Prometrium (Progesterone,Micronized) 100 Mg Capsule 1 Cap PO DAILY Xanax (Alprazolam) 2 Mg Tablet 2 Mg PO PRN Q6HRS PRN [place] 10-325 Tablet (Acetaminophen/Hydrocodone Bitart) 1 Each Tablet 1-2 Tab PO Q4-6HRS Tizanidine Hcl 4 Mg Tablet 1 Tab PO BID Vitals/I & O Vital Sign - Last 24 Hours 01/19/17 01/19/17 01/19/17 01/19/17 15:33 18:35 19:00 19:35 Temp 98.8 98.1 98.8 98.1 Pulse 86 91 Resp 20 18 18 B/P 107/46 123/58 Pulse Ox 97 95 97 O2 Delivery Nasal Cannula Nasal Cannula Nasal Cannula Nasal Cannula O2 Flow Rate 2.0 3.0 2.0 3.0 01/19/17 01/19/17 01/19/17 01/20/17 20:00 23:00 23:39 01:51 Temp 97.9 97.9 Pulse 90 Resp 18 B/P 134/78 Pulse Ox 97 97 97 O2 Delivery Nasal Cannula BiPAP/CPAP BiPAP/CPAP BiPAP/CPAP O2 Flow Rate 3.0 01/20/17 01/20/17 01/20/17 01/20/17 03:12 03:43 05:24 07:00 Temp 97.7 97.7 Pulse 79 Resp 20 B/P 150/80 Pulse Ox 97 98 97 100 O2 Delivery BiPAP/CPAP BiPAP/CPAP BiPAP/CPAP Nasal Cannula O2 Flow Rate 3.0 01/20/17 01/20/17 08:00 10:32 Temp 97.7 97.7 Pulse 83 Resp 20 B/P 141/75 Pulse Ox 98 O2 Delivery Nasal Cannula Nasal Cannula O2 Flow Rate 3.0 5.0 Intake and Output 01/19/17 01/19/17 01/20/17 15:00 23:00 07:00 Intake Total 180 ml 180 ml Output Total 3200 ml 1525 ml Balance 180 ml -3020 ml -1525 ml MARILEE KEITA MD Jan 20, 2017 13:18
[2017-01-20 15:00] VITALS: BP 145/79
[2017-01-20] MEDS: WARFARIN 4 MG TABLET. PO SCH (15:58)
[2017-01-20 19:00] VITALS: BP 144/87
[2017-01-20] MEDS: HYDROCODONE/APAP 10/325 TABLET. PO PRN (19:55)
[2017-01-20 22:57] VITALS: BP 100/49
[2017-01-21 03:00] VITALS: BP 105/52
[2017-01-21] MEDS: HYDROCODONE/APAP 10/325 TABLET. PO PRN ×2 (04:54→16:19)
[2017-01-21 05:10] LABS: INR 2.1 (0.8-1.1); PROTHROMBIN TIME PATIENT 22.7 SEC (11.7-14.0)
[2017-01-21] MEDS: PANTOPRAZOLE 40 MG TABLET. PO SCH (05:51)
[2017-01-21] MEDS: LEVOTHYROXINE 50 MCG TABLET PO SCH (05:52)
[2017-01-21 07:00] VITALS: BP 117/62
[2017-01-21] MEDS: FERROUS SULFATE 325 MG TABLET PO SCH (08:20)
[2017-01-21] MEDS: GLYBURIDE 5 MG TABLET PO SCH (08:20)
[2017-01-21] MEDS: METOLAZONE 2.5 MG TABLET PO SCH (08:21)
[2017-01-21] MEDS: POTASSIUM CHLORIDE 20 MEQ TABLET.ER. PO SCH (08:21)
[2017-01-21] MEDS: PROGESTERONE, MICRONIZED 100 MG CAPSULE PO SCH (08:21)
[2017-01-21] MEDS: tiZANidine 4 MG TABLET. PO SCH (08:21)
[2017-01-21] MEDS: TORSEMIDE 20 MG TABLET. PO SCH (08:21)
[2017-01-21] MEDS: FLUTICASONE 50MCG/NASAL SPRAY 16GM BOTTLE. NS SCH (08:22)
[2017-01-21] MEDS: ONDANSETRON PF 4 MG/2 ML VIAL. IV PRN ×2 (08:29→16:19)
[2017-01-21 11:00] VITALS: BP 120/67
--- NOTE | 2017-01-21 11:47 | PDOC ---
PROGRESS NOTES Chief Complaint Chief Complaint 1. Acute on chronic diastolic CHF, better 2. Anasarca 3. Morbidly obese BMI 86 4. HEIDI on CPAP/BIPAP qhs 5 COPD, asthma, stable 6. Knee pain s/p Injections plan oral diuresis per cardiology, Warfain per pharmacy prn BIPAP Labs ordered. anticipated DC today If cleared by cardiology home health at home out pt follow up with cardiology. History of Present Illness History of Present Illness no sob no chest pain no leg swelling. Vitals Vitals Vital Signs Date Time Temp Pulse Resp B/P Pulse Ox O2 Delivery O2 Flow Rate FiO2 01/21/17 11:00 97.7 75 20 120/67 95 Nasal Cannula 5.0 97.7 Physical Exam General: Alert, Cooperative, No acute distress, moderate distress Heart: Regular rate, Normal S1, Normal S2, No murmurs, Other (heart tones distant) Lungs: Clear Abdomen: Normal bowel sounds, Soft Extremities: No clubbing, Other Skin: No rashes, No breakdown Labs LABS Laboratory Tests Test 01/20/17 16:02 01/20/17 21:06 01/21/17 04:00 01/21/17 07:10 Glucose (Fingerstick) 83mg/dL (70-99) 107mg/dL (70-99) 83mg/dL (70-99) Prothrombin Time 22.7SEC (11.7-14.0) Prothromb Time International Ratio 2.1 (0.8-1.1) Test 01/21/17 10:41 Glucose (Fingerstick) 106mg/dL (70-99) Assessment and Plan Assessmemt and Plan Problems Medical Problems: (1) CHF (congestive heart failure) Status: Acute (2) SOB (shortness of breath) Status: Acute Problems: Comment Review of Relevant I have reviewed the following items kayleigh (where applicable) has been applied. Labs Laboratory Tests Test 01/20/17 07:00 01/20/17 07:25 01/20/17 10:11 01/20/17 16:02 Prothrombin Time 23.2SEC (11.7-14.0) Prothromb Time International Ratio 2.2 (0.8-1.1) Glucose (Fingerstick) 102mg/dL (70-99) 115mg/dL (70-99) 83mg/dL (70-99) Test 01/20/17 21:06 01/21/17 04:00 01/21/17 07:10 01/21/17 10:41 Glucose (Fingerstick) 107mg/dL (70-99) 83mg/dL (70-99) 106mg/dL (70-99) Prothrombin Time 22.7SEC (11.7-14.0) Prothromb Time International Ratio 2.1 (0.8-1.1) Laboratory Tests Test 01/20/17 16:02 01/20/17 21:06 01/21/17 04:00 01/21/17 07:10 Glucose (Fingerstick) 83mg/dL (70-99) 107mg/dL (70-99) 83mg/dL (70-99) Prothrombin Time 22.7SEC (11.7-14.0) Prothromb Time International Ratio 2.1 (0.8-1.1) Test 01/21/17 10:41 Glucose (Fingerstick) 106mg/dL (70-99) Medications Current Medications Furosemide (Lasix) 100 mg 1X ONCE IVP Last administered on 01/16/17 03:39; Start 01/16/17 at 03:30; Stop 01/16/17 at 03:31; Status DC Ondansetron HCl (Zofran) 4 mg PRN Q8HRS PRN IV NAUSEA/VOMITING Last administered on 01/16/17 11:04; Start 01/16/17 at 03:30; Stop 01/17/17 at 03:29 ; Status DC Acetaminophen (Tylenol) 650 mg PRN Q4HRS PRN PO FEVER; Start 01/16/17 at 03:30 ; Stop 01/17/17 at 03:29; Status DC Pantoprazole Sodium (Protonix) 40 mg DAILYAC PO Last administered on 01/21/17 05:51; Start 01/16/17 at 11:30 Acetaminophen/ Hydrocodone Bitart (Lortab 5/325) 1 tab 1X ONCE PO Last administered on 01/16/17 12:41; Start 01/16/17 at 11:30; Stop 01/16/17 at 11:31 ; Status DC Potassium Chloride (Klor-Con) 40 meq DAILY PO Last administered on 01/21/17 08 :21; Start 01/17/17 at 09:00 Furosemide (Lasix) 80 mg BID92 PO Last administered on 01/17/17 09:26; Start 01/16/17 at 16:00; Stop 01/17/17 at 11:11; Status DC Metolazone (Zaroxolyn) 10 mg Q3DAYS PO Last administered on 01/21/17 08:21; Start 01/18/17 at 09:00 Furosemide (Lasix) 80 mg BID92 PO ; Start 01/17/17 at 09:00; Status Cancel Acetaminophen/ Hydrocodone Bitart (Lortab 10/325) 1 tab PRN Q6HRS PRN PO pain Last administered on 01/21/17 04:54; Start 01/16/17 at 22:30 Levothyroxine Sodium (Synthroid) 50 mcg DAILY07 PO Last administered on 05:52; Start 01/17/17 at 07:00 Nystatin (Nystop) 1 divya PRN QID PRN TP DRY SKIN / SCALING; Start 01/16/17 at 22 :30 Tizanidine HCl (Zanaflex) 4 mg BID PO Last administered on 01/21/17 08:21; Start 01/17/17 at 09:00 Non-Formulary Medication 1 puff Q4-6HRS PRN INH SHORTNESS OF BREATH; Start 01/16 at 22:30; Status UNV Albuterol Sulfate (Ventolin Neb Soln) 2.5 mg PRN Q4HRS PRN NEB SHORTNESS OF BREATH; Start 01/16/17 at 22:45 Tizanidine HCl (Zanaflex) 4 mg 1X ONCE PO Last administered on 01/16/17 23:42 ; Start 01/16/17 at 23:30; Stop 01/16/17 at 23:31; Status DC Alprazolam (Xanax) 1 mg 1X ONCE PO Last administered on 01/17/17 00:14; Start 01/16/17 at 23:30; Stop 01/16/17 at 23:31; Status DC Bumetanide (Bumex) 1 mg BID92 PO Last administered on 01/17/17 13:04; Start at 14:00; Stop 01/17/17 at 15:32; Status DC Furosemide (Lasix) 40 mg 1X ONCE IVP Last administered on 01/17/17 13:04; Start 01/17/17 at 13:00; Stop 01/17/17 at 13:01; Status DC Bumetanide (Bumex) 1 mg BID92 PO ; Start 01/18/17 at 09:00; Stop 01/18/17 at 09: 00; Status DC Diphenhydramine HCl (Benadryl) 50 mg PRN Q6HRS PRN PO ITCHING Last administered on 01/18/17 08:26; Start 01/17/17 at 20:45 Alprazolam (Xanax) 2 mg PRN Q8HRS PRN PO ANXIETY / AGITATION Last administered on 01/17/17 23:46; Start 01/17/17 at 20:45; Stop 01/20/17 at 12:24; Status DC Torsemide (Demadex) 20 mg DAILY PO Last administered on 01/21/17 08:21; Start 01/18/17 at 10:15 Methylprednisolone Acetate (Depo-Medrol 80mg Vial) 80 mg 1X ONCE IM ; Start at 17:45; Stop 01/18/17 at 17:46; Status DC Methylprednisolone Acetate (Depo-Medrol 80mg Vial) 80 mg 1X ONCE IM ; Start at 17:45; Stop 01/18/17 at 17:46; Status DC Bupivacaine HCl (Sensorcaine-Mpf 0.25%) 10 ml 1X ONCE IJ ; Start 01/18/17 at 17 :45; Stop 01/18/17 at 17:46; Status DC Ferrous Sulfate (Feosol) 325 mg DAILY08 PO Last administered on 01/21/17 08:20 ; Start 01/19/17 at 17:00 Fluticasone Propionate (Flonase) 2 spray DAILY NS Last administered on 08:22; Start 01/19/17 at 15:00 Glyburide (Diabeta) 5 mg DAILY08 PO Last administered on 01/21/17 08:20; Start 01/20/17 at 08:00 Progesterone (Prometrium) 100 mg DAILY PO Last administered on 01/21/17 08:21 ; Start 01/19/17 at 15:00 Warfarin Sodium (Coumadin) 4 mg DAILY16 PO Last administered on 01/20/17 15:58 ; Start 01/19/17 at 16:00 Alprazolam (Xanax) 2 mg PRN Q6HRS PRN PO ANXIETY / AGITATION Last administered on 01/20/17 19:55; Start 01/19/17 at 15:00 Warfarin Sodium (Coumadin Per Physician) 1 each PRN DAILY PRN MC SEE COMMENTS; Start 01/19/17 at 15:00 Ondansetron HCl (Zofran) 4 mg PRN Q6HRS PRN IV NAUSEA/VOMITING Last administered on 01/21/17 08:29; Start 01/20/17 at 09:15 Active Scripts Active Reported Furosemide 80 Mg Tablet 80 Mg PO BID Glyburide 5 Mg Tablet 5 Mg PO DAILY Levothyroxine Sodium 50 Mcg Tablet 1 Tab PO DAILY Nystop (Nystatin) 60 Gm Powder 30 Gm TP PRN Fluticasone Propionate Nasal [place] (Fluticasone Propionate) 16 Gm [place].susp 2 [place] NS DAILY Ferrous Sulfate 325 Mg Tablet 1 Tab PO DAILY Klor-Con M20 (Potassium Chloride) 20 Meq Tab.er.prt 2 Tab PO BID Proair Hfa Inhaler (Albuterol Sulfate) 8.5 Gm Hfa.aer.ad 1 Puff INH Q4-6HRS PRN Coumadin (Warfarin Sodium) 2.5 Mg Tablet 4 Mg PO DAILY Prometrium (Progesterone,Micronized) 100 Mg Capsule 1 Cap PO DAILY Xanax (Alprazolam) 2 Mg Tablet 2 Mg PO PRN Q6HRS PRN [place] 10-325 Tablet (Acetaminophen/Hydrocodone Bitart) 1 Each Tablet 1-2 Tab PO Q4-6HRS Tizanidine Hcl 4 Mg Tablet 1 Tab PO BID Vitals/I & O Vital Sign - Last 24 Hours 01/20/17 01/20/17 01/20/17 01/20/17 15:00 19:00 19:55 20:03 Temp 97.7 98.4 97.7 98.4 Pulse 80 93 Resp 20 20 18 B/P 145/79 144/87 Pulse Ox 100 98 100 O2 Delivery Nasal Cannula Nasal Cannula Nasal Cannula Nasal Cannula O2 Flow Rate 5.0 5.0 5.0 3.0 01/20/17 01/20/17 01/21/17 01/21/17 22:57 23:38 01:34 03:00 Temp 96.1 96.6 96.1 96.6 Pulse 78 77 Resp 18 18 B/P 100/49 105/52 Pulse Ox 98 97 96 O2 Delivery BiPAP/CPAP BiPAP/CPAP BiPAP/CPAP BiPAP/CPAP 01/21/17 01/21/17 01/21/17 01/21/17 03:33 04:54 05:53 07:00 Temp 97.7 97.7 Pulse 76 Resp 18 20 B/P 117/62 Pulse Ox 96 96 96 O2 Delivery BiPAP/CPAP Nasal Cannula Nasal Cannula Nasal Cannula O2 Flow Rate 3.0 3.0 5.0 01/21/17 01/21/17 08:00 11:00 Temp 97.7 97.7 Pulse 75 Resp 20 B/P 120/67 Pulse Ox 95 O2 Delivery Nasal Cannula Nasal Cannula O2 Flow Rate 5.0 5.0 Intake and Output 01/20/17 01/20/17 01/21/17 15:00 23:00 07:00 Intake Total 360 ml 420 ml 360 ml Output Total 1880 ml 1475 ml Balance 360 ml -1460 ml -1115 ml NOEMI MCKEON MD Jan 21, 2017 11:47
[2017-01-21 11:59] LABS: CALCIUM 8.5 mg/dL (8.5-10.1); CREATININE 0.8 mg/dL (0.6-1.0); GFR 94.3; POTASSIUM 3.8 mmol/L (3.5-5.1)
[2017-01-21 14:52] VITALS: BP 119/65
[2017-01-21] MEDS: WARFARIN 4 MG TABLET. PO SCH (16:16)
--- NOTE | 2017-01-21 18:04 | PDOC ---
PROGRESS NOTES Subjective Subjective She admits low back pain but not sure to consider injections to her back at this time. Objective Objective Vital Signs Date Time Temp Pulse Resp B/P Pulse Ox O2 Delivery O2 Flow Rate FiO2 01/21/17 14:52 97.7 74 119/65 95 Nasal Cannula 5.0 97.7 01/21/17 11:00 20 Intake and Output 01/21/17 07:00 Intake Total 1140 ml Output Total 3355 ml Balance -2215 ml Intake Oral 1140 ml Output Urine Total 3275 ml Emesis 80 ml # Bowel Movements 1 Physical Exam Physical Exam She is supine in bed and seems to be in no acute distress but still requires help with transfers as for PT. Assessment Assessment Problems Medical Problems: (1) CHF (congestive heart failure) Status: Acute (2) SOB (shortness of breath) Status: Acute Plan Plan of Mcfp with home health when medically stable. Comment Review of Relevant I have reviewed the following items kayleigh (where applicable) has been applied. Labs Laboratory Tests Test 01/20/17 07:00 01/20/17 07:25 01/20/17 10:11 01/20/17 16:02 Prothrombin Time 23.2SEC (11.7-14.0) Prothromb Time International Ratio 2.2 (0.8-1.1) Glucose (Fingerstick) 102mg/dL (70-99) 115mg/dL (70-99) 83mg/dL (70-99) Test 01/20/17 21:06 01/21/17 04:00 01/21/17 07:10 01/21/17 10:41 Glucose (Fingerstick) 107mg/dL (70-99) 83mg/dL (70-99) 106mg/dL (70-99) Prothrombin Time 22.7SEC (11.7-14.0) Prothromb Time International Ratio 2.1 (0.8-1.1) Sodium Level 140mmol/L (136-145) Potassium Level 3.8mmol/L (3.5-5.1) Chloride Level 95mmol/L (98-107) Carbon Dioxide Level 42mmol/L (21-32) Anion Gap 3 (6-14) Blood Urea Nitrogen 11mg/dL (7-20) Creatinine 0.8mg/dL (0.6-1.0) Estimated GFR (Cockcroft-Gault) 94.3 Glucose Level 98mg/dL (70-99) Calcium Level 8.5mg/dL (8.5-10.1) Laboratory Tests Test 01/20/17 21:06 01/21/17 04:00 01/21/17 07:10 01/21/17 10:41 Glucose (Fingerstick) 107mg/dL (70-99) 83mg/dL (70-99) 106mg/dL (70-99) Prothrombin Time 22.7SEC (11.7-14.0) Prothromb Time International Ratio 2.1 (0.8-1.1) Sodium Level 140mmol/L (136-145) Potassium Level 3.8mmol/L (3.5-5.1) Chloride Level 95mmol/L (98-107) Carbon Dioxide Level 42mmol/L (21-32) Anion Gap 3 (6-14) Blood Urea Nitrogen 11mg/dL (7-20) Creatinine 0.8mg/dL (0.6-1.0) Estimated GFR (Cockcroft-Gault) 94.3 Glucose Level 98mg/dL (70-99) Calcium Level 8.5mg/dL (8.5-10.1) Medications Current Medications Furosemide (Lasix) 100 mg 1X ONCE IVP Last administered on 01/16/17 03:39; Start 01/16/17 at 03:30; Stop 01/16/17 at 03:31; Status DC Ondansetron HCl (Zofran) 4 mg PRN Q8HRS PRN IV NAUSEA/VOMITING Last administered on 01/16/17 11:04; Start 01/16/17 at 03:30; Stop 01/17/17 at 03:29 ; Status DC Acetaminophen (Tylenol) 650 mg PRN Q4HRS PRN PO FEVER; Start 01/16/17 at 03:30 ; Stop 01/17/17 at 03:29; Status DC Pantoprazole Sodium (Protonix) 40 mg DAILYAC PO Last administered on 01/21/17 05:51; Start 01/16/17 at 11:30 Acetaminophen/ Hydrocodone Bitart (Lortab 5/325) 1 tab 1X ONCE PO Last administered on 01/16/17 12:41; Start 01/16/17 at 11:30; Stop 01/16/17 at 11:31 ; Status DC Potassium Chloride (Klor-Con) 40 meq DAILY PO Last administered on 01/21/17 08 :21; Start 01/17/17 at 09:00 Furosemide (Lasix) 80 mg BID92 PO Last administered on 01/17/17 09:26; Start 01/16/17 at 16:00; Stop 01/17/17 at 11:11; Status DC Metolazone (Zaroxolyn) 10 mg Q3DAYS PO Last administered on 01/21/17 08:21; Start 01/18/17 at 09:00 Furosemide (Lasix) 80 mg BID92 PO ; Start 01/17/17 at 09:00; Status Cancel Acetaminophen/ Hydrocodone Bitart (Lortab 10/325) 1 tab PRN Q6HRS PRN PO pain Last administered on 01/21/17 16:19; Start 01/16/17 at 22:30 Levothyroxine Sodium (Synthroid) 50 mcg DAILY07 PO Last administered on 05:52; Start 01/17/17 at 07:00 Nystatin (Nystop) 1 divya PRN QID PRN TP DRY SKIN / SCALING; Start 01/16/17 at 22 :30 Tizanidine HCl (Zanaflex) 4 mg BID PO Last administered on 01/21/17 08:21; Start 01/17/17 at 09:00 Non-Formulary Medication 1 puff Q4-6HRS PRN INH SHORTNESS OF BREATH; Start 01/16 at 22:30; Status UNV Albuterol Sulfate (Ventolin Neb Soln) 2.5 mg PRN Q4HRS PRN NEB SHORTNESS OF BREATH; Start 01/16/17 at 22:45 Tizanidine HCl (Zanaflex) 4 mg 1X ONCE PO Last administered on 01/16/17 23:42 ; Start 01/16/17 at 23:30; Stop 01/16/17 at 23:31; Status DC Alprazolam (Xanax) 1 mg 1X ONCE PO Last administered on 01/17/17 00:14; Start 01/16/17 at 23:30; Stop 01/16/17 at 23:31; Status DC Bumetanide (Bumex) 1 mg BID92 PO Last administered on 01/17/17 13:04; Start at 14:00; Stop 01/17/17 at 15:32; Status DC Furosemide (Lasix) 40 mg 1X ONCE IVP Last administered on 01/17/17 13:04; Start 01/17/17 at 13:00; Stop 01/17/17 at 13:01; Status DC Bumetanide (Bumex) 1 mg BID92 PO ; Start 01/18/17 at 09:00; Stop 01/18/17 at 09: 00; Status DC Diphenhydramine HCl (Benadryl) 50 mg PRN Q6HRS PRN PO ITCHING Last administered on 01/18/17 08:26; Start 01/17/17 at 20:45 Alprazolam (Xanax) 2 mg PRN Q8HRS PRN PO ANXIETY / AGITATION Last administered on 01/17/17 23:46; Start 01/17/17 at 20:45; Stop 01/20/17 at 12:24; Status DC Torsemide (Demadex) 20 mg DAILY PO Last administered on 01/21/17 08:21; Start 01/18/17 at 10:15 Methylprednisolone Acetate (Depo-Medrol 80mg Vial) 80 mg 1X ONCE IM ; Start at 17:45; Stop 01/18/17 at 17:46; Status DC Methylprednisolone Acetate (Depo-Medrol 80mg Vial) 80 mg 1X ONCE IM ; Start at 17:45; Stop 01/18/17 at 17:46; Status DC Bupivacaine HCl (Sensorcaine-Mpf 0.25%) 10 ml 1X ONCE IJ ; Start 01/18/17 at 17 :45; Stop 01/18/17 at 17:46; Status DC Ferrous Sulfate (Feosol) 325 mg DAILY08 PO Last administered on 01/21/17 08:20 ; Start 01/19/17 at 17:00 Fluticasone Propionate (Flonase) 2 spray DAILY NS Last administered on 08:22; Start 01/19/17 at 15:00 Glyburide (Diabeta) 5 mg DAILY08 PO Last administered on 01/21/17 08:20; Start 01/20/17 at 08:00 Progesterone (Prometrium) 100 mg DAILY PO Last administered on 01/21/17 08:21 ; Start 01/19/17 at 15:00 Warfarin Sodium (Coumadin) 4 mg DAILY16 PO Last administered on 01/21/17 16:16 ; Start 01/19/17 at 16:00 Alprazolam (Xanax) 2 mg PRN Q6HRS PRN PO ANXIETY / AGITATION Last administered on 01/20/17 19:55; Start 01/19/17 at 15:00 Warfarin Sodium (Coumadin Per Physician) 1 each PRN DAILY PRN MC SEE COMMENTS Last administered on 01/21/17 12:41; Start 01/19/17 at 15:00 Ondansetron HCl (Zofran) 4 mg PRN Q6HRS PRN IV NAUSEA/VOMITING Last administered on 01/21/17 16:19; Start 01/20/17 at 09:15 Active Scripts Active Reported Furosemide 80 Mg Tablet 80 Mg PO BID Glyburide 5 Mg Tablet 5 Mg PO DAILY Levothyroxine Sodium 50 Mcg Tablet 1 Tab PO DAILY Nystop (Nystatin) 60 Gm Powder 30 Gm TP PRN Fluticasone Propionate Nasal [place] (Fluticasone Propionate) 16 Gm [place].susp 2 [place] NS DAILY Ferrous Sulfate 325 Mg Tablet 1 Tab PO DAILY Klor-Con M20 (Potassium Chloride) 20 Meq Tab.er.prt 2 Tab PO BID Proair Hfa Inhaler (Albuterol Sulfate) 8.5 Gm Hfa.aer.ad 1 Puff INH Q4-6HRS PRN Coumadin (Warfarin Sodium) 2.5 Mg Tablet 4 Mg PO DAILY Prometrium (Progesterone,Micronized) 100 Mg Capsule 1 Cap PO DAILY Xanax (Alprazolam) 2 Mg Tablet 2 Mg PO PRN Q6HRS PRN [place] 10-325 Tablet (Acetaminophen/Hydrocodone Bitart) 1 Each Tablet 1-2 Tab PO Q4-6HRS Tizanidine Hcl 4 Mg Tablet 1 Tab PO BID Vitals/I & O Vital Sign - Last 24 Hours 01/20/17 01/20/17 01/20/17 01/20/17 19:00 19:55 20:03 22:57 Temp 98.4 96.1 98.4 96.1 Pulse 93 78 Resp 20 18 18 B/P 144/87 100/49 Pulse Ox 98 100 98 O2 Delivery Nasal Cannula Nasal Cannula Nasal Cannula BiPAP/CPAP O2 Flow Rate 5.0 5.0 3.0 01/20/17 01/21/17 01/21/17 01/21/17 23:38 01:34 03:00 03:33 Temp 96.6 96.6 Pulse 77 Resp 18 B/P 105/52 Pulse Ox 97 96 O2 Delivery BiPAP/CPAP BiPAP/CPAP BiPAP/CPAP BiPAP/CPAP 01/21/17 01/21/17 01/21/17 01/21/17 04:54 05:53 07:00 08:00 Temp 97.7 97.7 Pulse 76 Resp 18 20 B/P 117/62 Pulse Ox 96 96 96 O2 Delivery Nasal Cannula Nasal Cannula Nasal Cannula Nasal Cannula O2 Flow Rate 3.0 3.0 5.0 5.0 01/21/17 01/21/17 11:00 14:52 Temp 97.7 97.7 97.7 97.7 Pulse 75 74 Resp 20 B/P 120/67 119/65 Pulse Ox 95 95 O2 Delivery Nasal Cannula Nasal Cannula O2 Flow Rate 5.0 5.0 Intake and Output 01/20/17 01/20/17 01/21/17 15:00 23:00 07:00 Intake Total 360 ml 420 ml 360 ml Output Total 1880 ml 1475 ml Balance 360 ml -1460 ml -1115 ml DENISE GERBER MD Jan 21, 2017 18:04
--- NOTE | 2017-01-21 20:48 | DS ---
DATE OF DISCHARGE: 01/21/2017 DISCHARGE DIAGNOSES: 1. Acute on chronic diastolic heart failure, resolved. 2. Morbid obesity, BMI 86 and obstructive sleep apnea on CPAP at nighttime. 3. Chronic obstructive pulmonary disease and asthma, stable. 4. Knee pain, status post intra-articular injections. BRIEF HOSPITAL COURSE: A 46-year-old female patient admitted to the hospital for shortness of breath. The patient was evaluated by Cardiology and Physical Medicine and Rehabilitation. The patient was started on diuresis. Her symptoms improved with diuresis and also her electrolytes have been monitored, which has been stable during her stay. The patient had respiratory distress, this has been controlled with CPAP at nighttime. With improved today, she deemed clinically stable enough to go home and follow up with cardiology and primary care doctor as needed. DISCHARGE EXAMINATION: Please see my progress note. DISCHARGE CONDITION: Stable. FOLLOWUP: With primary care doctor and Cardiology. DISCHARGE MEDICATIONS: Reviewed and reconciled. Please see MRAD. Total time spent for discharge is 32 minutes for the patient education, counseling and coordination of care. NOEMI MCKEON MD DR: JACKIE/georgette JOB#: [id number] / [id number]
== END 2017-01-21 17:00 | disposition home health service (06) | DRG 292 ==
LOC: ER 01:18 → 5 NORTH 02:40
PROVIDERS: ADMIT Internal Medicine; ATTEND Internal Medicine
PROC: 5A09357 Assistance with Respiratory Ventilation, Less than 24 Consecutive Hours, Continuous Positive Airway Pressure (ICD-10-PCS; principal; 2017-01-17)
DX: I50.33 Acute on chronic diastolic (congestive) heart failure (principal); Z68.45 Body mass index [BMI] 70 or greater, adult; E66.2 Morbid (severe) obesity with alveolar hypoventilation; E87.2 Acidosis; J98.11 Atelectasis; J44.9 Chronic obstructive pulmonary disease, unspecified; I11.0 Hypertensive heart disease with heart failure; E03.9 Hypothyroidism, unspecified; E11.42 Type 2 diabetes mellitus with diabetic polyneuropathy; E78.5 Hyperlipidemia, unspecified; G47.33 Obstructive sleep apnea (adult) (pediatric); J45.909 Unspecified asthma, uncomplicated; K21.9 Gastro-esophageal reflux disease without esophagitis; F32.9 Major depressive disorder, single episode, unspecified; F41.9 Anxiety disorder, unspecified; M54.5 Low back pain; M17.0 Bilateral primary osteoarthritis of knee; Z86.711 Personal history of pulmonary embolism; Z87.442 Personal history of urinary calculi; Z91.19 Patient's noncompliance with other medical treatment and regimen; Z87.01 Personal history of pneumonia (recurrent); Z87.440 Personal history of urinary (tract) infections; Z91.041 Radiographic dye allergy status; Z91.013 Allergy to seafood; Z91.018 Allergy to other foods; Z91.09 Other allergy status, other than to drugs and biological substances; Z98.51 Tubal ligation status; Z88.5 Allergy status to narcotic agent
CPT/HCPCS: 36415; 51702; 71010; 80048; 82947; 83735; 83880; 84484; 85027; 85610; 93005; 94660; 96374; 96375; J1940; J2405; Q0163; 97530; 97535; 99285-25

== ENCOUNTER 2017-07-21 21:54 | Inpatient (IN) | payer OTHER ==
[~2017-07-21] VITALS: Ht 160 cm; Wt 225.5 kg
[~2017-07-21 21:54] MED LIST changes: -AMLO-254 PO; +AMLO-268 PO; +GLYB5TAB3 PO; +LEVO50TA5 PO; -METO50TA2 PO; +METO50TA6 PO; -OXYC-244 PO; -OXYC-250 PO; +OXYC-327 PO; +OXYC-328 PO; -POTA10CA PO; +POTASSIUM CHLO10 MEQ PO; +PROG100C15 PO; -PROG100C7 PO; -WARF2.5T PO; +WARF2.5T83 PO
[2017-07-21] MEDS ORDERED: IV NORMAL SALINE 1000ML BAG 1,000 ML IV ONE (22:15)
[2017-07-21] MEDS ORDERED: ONDANSETRON PF 4 MG/2 ML VIAL. IV ONE (22:30)
[2017-07-21] MEDS ORDERED: HYDROmorphone 2 MG/ML VIAL IV ONE (22:30)
--- NOTE | 2017-07-21 22:59 | RAD ---
History: Abdominal pain. Comparison: None. Technique: CT of the abdomen and pelvis was performed without intravenous or oral contrast. Exposure: One or more of the following individualized dose reduction techniques were utilized for this examination: 1. Automated exposure control 2. Adjustment of the mA and/or kV according to patient size 3. Use of iterative reconstruction technique Findings: Evaluation of solid organs is limited by lack of intravenous contrast. Evaluation of enteric structures may be limited by lack of oral contrast. There is also quantum mottle artifact secondary to patient's large body habitus. Many organs are suboptimally visualized. Liver, spleen, pancreas, and bilateral kidneys are grossly unremarkable. Adrenal glands are suboptimally visualized. No bowel obstruction or inflammation is seen. Uterus is grossly unremarkable. Urinary bladder is suboptimally visualized but appears grossly unremarkable. Colonic diverticulosis is noted, but no diverticulitis is no gross diverticulitis is appreciated. No gross free fluid is identified. Impression: 1. Markedly limited examination. 2. No definite acute abnormality identified. Electronically signed by: Kj Stevenson MD (07/21/2017 10:56 PM) [id number]
[2017-07-21 23:13] LABS: BASO % 0 % (0-3); EOS % 1 % (0-3); HEMOGLOBIN 9.7 g/dL (12.0-15.5); LYMPH # 1.7 x10^3/uL (1.0-4.8); LYMPH % 14 % (24-48); MEAN CORPUSCULAR HEMOGLOBIN 28 pg (25-35); MEAN CORPUSCULAR HGB CONC 32 g/dL (31-37); MEAN CORPUSCULAR VOLUME 86 fL (79-100); MONO % 3 % (0-9); NEUT % 81 % (31-73); PLATELET COUNT 292 x10^3/uL (140-400); RED CELL DISTRIBUTION WIDTH 14.1 % (11.5-14.5); WHITE BLOOD COUNT 11.9 x10^3/uL (4.0-11.0)
[2017-07-21 23:32] LABS: ALBUMIN 2.9 g/dL (3.4-5.0); ALBUMIN/GLOBULIN RATIO 0.5 (1.0-1.7); CALCIUM 9.1 mg/dL (8.5-10.1); CREATININE 1.2 mg/dL (0.6-1.0); GFR 58.8; TOTAL BILIRUBIN 0.4 mg/dL (0.2-1.0); TOTAL PROTEIN 8.9 g/dL (6.4-8.2)
[2017-07-21 23:34] LABS: POTASSIUM 2.5 mmol/L (3.5-5.1)
[2017-07-21 23:51] LABS: BILIRUBIN,URINE NEGATIVE (NEG); GLUCOSE,URINE NEGATIVE (NEG); NITRITE,URINE NEGATIVE (NEG); PROTEIN,URINE NEGATIVE (NEG-TRACE)
[2017-07-21 23:58] LABS: BACTERIA,URINE 0 /HPF (0-FEW); RBC,URINE 0 /HPF (0-2); SQUAMOUS EPITHELIAL CELL,UR FEW /LPF; WBC,URINE 0 /HPF (0-4)
[2017-07-22] VITALS (7 sets, daily range): BP systolic 113–149; BP diastolic 55–71
[2017-07-22] MEDS ORDERED: POTASSIUM CHLORIDE 20 MEQ TABLET.ER. PO ONE (00:15)
[2017-07-22] MEDS ORDERED: ONDANSETRON PF 4 MG/2 ML VIAL. IV PRN ×2 (01:00→10:15)
--- NOTE | 2017-07-22 01:05 | PHYS DOC ---
Past Medical History Past Medical History: Asthma, CHF, COPD, Pneumonia Additional Past Medical Histor: Pulmonary Edema,morbid obesity Past Surgical History: Tubal ligation Additional Past Surgical Histo: HERNIA REPAIR Alcohol Use: None Drug Use: None Adult General Chief Complaint Chief Complaint: NAUSEA/VOMITING/DIARRHA HPI HPI Patient is a 47 year old female with a history significant for CHF and COPD who presents here today complaining of nausea vomiting for approximately 2 weeks with increased midepigastric abdominal pain. Patient reports she initially started having diarrhea over the last several days she has been constipated. Patient denies any fevers shakes chills. Patient denies any dysuria frequency or urgency. Patient reports she's had decreased urinary output secondary to inability to keep down food. Patient reports over the last 24 hours she has not been able keep down process. Patient also complaining of abdominal pain in the midepigastric area. She reports that she had a hernia repair in the past and is seen area where she is having the discomfort currently. Patient denies any history of hypertension diabetes lung liver or kidney problems. Patient does have a history of diverticulitis and sepsis for which she was admitted for to the hospital and she is concerned that she may be heading in that direction. Review of systems Constitutional: Morbidly obese in no acute distress Denies fever or chills Eyes: Denies change in visual acuity, redness, or eye pain HENT: Denies nasal congestion or sore throat All other review systems are negative except as documented in the history of present illness portion. Physical exam Constitutional: Morbidly obese no acute distress, non-toxic appearance. HENT: Normocephalic, atraumatic, bilateral external ears normal, oropharynx moist, no oral exudates, nose normal. Eyes: PERRLA, EOMI, conjunctiva normal, no discharge. Neck: Normal range of motion, no tenderness, supple, no stridor. Cardiovascular:Heart rate regular rhythm, Lungs & Thorax: Bilateral breath sounds clear to auscultation Abdomen: Bowel sounds normal, soft, no tenderness, no masses, no pulsatile masses. Skin: Warm, dry, no erythema, no rash. Back: No tenderness, no CVA tenderness. Extremities: No tenderness, no cyanosis, no clubbing, ROM intact, no edema. Neurologic: Alert and oriented X 3, normal motor function, normal sensory function, no focal deficits noted. Psychologic: Affect normal, judgement normal, mood normal. This is a 47-year-old female who presents to the ER today secondary to decreased ability to eating and drinking over the last 2 weeks. Patient reports she has been taking Zofran at home without any improvement. Patient's labs in the ED was significant for a markedly hypokalemia. Patient's potassium is 2.5. Patient does complain of generalized weakness however it's unclear whether or not this is worsened from her baseline. Patient is morbidly obese and reports that she is only able to get around with a walker and assistance from family. In the ER patient was initially given potassium supplementation with the plan to discharge patient to home however after reevaluating the patient she reports that she has not been able keep anything down for approximately 1-2 weeks despite Zofran. Given her failure of outpatient therapy with Zofran and her hypokalemia and feel the patient best suited to be admitted to the hospital for aggressive hydration and further investigation regarding the cause of her symptoms. Patient's CT scan of her abdomen and pelvis which revealed no acute pathology. CT scan was limited secondary to the patient's size. Current Medications Current Medications Current Medications Medications (Trade) Dose Ordered Sig/Ron Start Time Stop Time Status Last Admin Dose Admin Acetaminophen (Tylenol) 650 mg PRN Q4HRS PRN 07/22/17 01:00 07/23/17 00:59 Hydromorphone HCl (Dilaudid) 1 mg 1X ONCE 07/21/17 22:30 07/21/17 22:31 DC 07/21/17 22:54 1 MG Ondansetron HCl (Zofran) 4 mg PRN Q8HRS PRN 07/22/17 01:00 07/23/17 00:59 Potassium Chloride (Klor-Con) 40 meq 1X ONCE 07/22/17 00:15 07/22/17 00:16 DC 07/22/17 00:35 40 MEQ Sodium Chloride 1,000 ml @ 125 mls/hr Q8H 07/22/17 01:00 07/23/17 00:59 Allergies Allergies Allergies Coded Allergies Type Severity Reaction Last Updated Verified coconut Allergy Intermediate 04/23/16 Yes povidone-iodine Allergy Intermediate Rash 12/14/16 Yes shellfish derived Allergy Intermediate 07/08/14 Yes soap Allergy Intermediate Rash 12/14/16 Yes iodine Adverse Reaction Severe Swelling 12/14/16 Yes bumetanide Adverse Reaction Intermediate Itching 01/17/17 Yes morphine Adverse Reaction Intermediate severe nausea and migraine 07/26/14 Yes Current Patient Data Vital Signs Vital Signs Date Time Temp Pulse Resp B/P (MAP) Pulse Ox O2 Delivery O2 Flow Rate FiO2 07/21/17 23:30 92 21 107/77 (87) 92 Room Air 07/21/17 22:02 99.0 2.5 99.0 Lab Values Laboratory Tests Test 07/21/17 23:05 07/21/17 23:35 07/21/17 23:46 White Blood Count 11.9 x10^3/uL (4.0-11.0) H Red Blood Count 3.50 x10^6/uL (3.50-5.40) Hemoglobin 9.7 g/dL (12.0-15.5) L Hematocrit 30.0 % (36.0-47.0) L Mean Corpuscular Volume 86 fL (79-100) Mean Corpuscular Hemoglobin 28 pg (25-35) Mean Corpuscular Hemoglobin Concent 32 g/dL (31-37) Red Cell Distribution Width 14.1 % (11.5-14.5) Platelet Count 292 x10^3/uL (140-400) Neutrophils (%) (Auto) 81 % (31-73) H Lymphocytes (%) (Auto) 14 % (24-48) L Monocytes (%) (Auto) 3 % (0-9) Eosinophils (%) (Auto) 1 % (0-3) Basophils (%) (Auto) 0 % (0-3) Neutrophils # (Auto) 9.6 x10^3uL (1.8-7.7) H Lymphocytes # (Auto) 1.7 x10^3/uL (1.0-4.8) Monocytes # (Auto) 0.4 x10^3/uL (0.0-1.1) Eosinophils # (Auto) 0.2 x10^3/uL (0.0-0.7) Basophils # (Auto) 0.0 x10^3/uL (0.0-0.2) Sodium Level 139 mmol/L (136-145) Potassium Level 2.5 mmol/L (3.5-5.1) *L Chloride Level 91 mmol/L (98-107) L Carbon Dioxide Level 45 mmol/L (21-32) H Anion Gap 3 (6-14) L Blood Urea Nitrogen 17 mg/dL (7-20) Creatinine 1.2 mg/dL (0.6-1.0) H Estimated GFR (Cockcroft-Gault) 58.8 BUN/Creatinine Ratio 14 (6-20) Glucose Level 120 mg/dL (70-99) H Calcium Level 9.1 mg/dL (8.5-10.1) Total Bilirubin 0.4 mg/dL (0.2-1.0) Aspartate Amino Transferase (AST) 15 U/L (15-37) Alanine Aminotransferase (ALT) 11 U/L (14-59) L Alkaline Phosphatase 74 U/L (46-116) Total Protein 8.9 g/dL (6.4-8.2) H Albumin 2.9 g/dL (3.4-5.0) L Albumin/Globulin Ratio 0.5 (1.0-1.7) L Lipase 165 U/L (73-393) Urine Collection Type Unknown Urine Color Yellow Urine Clarity Clear Urine pH 8.0 Urine Specific [place] 1.010 Urine Protein Negative mg/dL (NEG-TRACE) Urine Glucose (UA) Negative mg/dL (NEG) Urine Ketones (Stick) Negative mg/dL (NEG) Urine Blood Negative (NEG) Urine Nitrite Negative (NEG) Urine Bilirubin Negative (NEG) Urine Urobilinogen Dipstick 1.0 mg/dL (0.2 mg/dL) Urine Leukocyte Esterase Negative (NEG) Urine RBC 0 /HPF (0-2) Urine WBC 0 /HPF (0-4) Urine Squamous Epithelial Cells Few /LPF Urine Bacteria 0 /HPF (0-FEW) POC Urine HCG, Qualitative Hcg negative (Negative) Laboratory Tests 07/21/17 23:05 Laboratory Tests 07/21/17 23:05 EKG EKG [] Radiology/Procedures Radiology/Procedures [] Course & Med Decision Making Course & Med Decision Making Pertinent Labs and Imaging studies reviewed. (See chart for details) [] Dragon Disclaimer Dragon Disclaimer This electronic medical record was generated, in whole or in part, using a voice recognition dictation system. Departure Departure Impression: Primary Impression: Abdominal pain Additional Impressions: Vomiting Dehydration Hypokalemia Disposition: HOME, SELF-CARE Admitting Physician: Tammi Mac Condition: IMPROVED Referrals: [facility] (PCP) Problem Qualifiers ADRIANA STAFFORD MD Jul 22, 2017 01:04
[2017-07-22] MEDS: ACETAMINOPHEN 325 MG TABLET. PO PRN ×2 (03:35→09:01)
[2017-07-22] MEDS: IV NORMAL SALINE 1000ML BAG 1,000 ML IV SCH ×3 (03:35→17:00)
[2017-07-22] MEDS ORDERED: DOCU100C28 PO (05:46)
[2017-07-22] MEDS ORDERED: TORS20TA2 (05:46)
[2017-07-22] MEDS ORDERED: CLOT15CR4 TOP (05:46)
[2017-07-22] MEDS ORDERED: WARF3TAB7 (05:46)
[2017-07-22] MEDS ORDERED: METO2.5T (05:46)
[2017-07-22] MEDS ORDERED: BUSP10TA (05:46)
[2017-07-22] MEDS ORDERED: SENN8.6T99 PO (05:46)
[2017-07-22] MEDS ORDERED: OXYC30TA (05:46)
[2017-07-22] MEDS ORDERED: PNEUMOC CONJ VACC 23-VALENT 0.5 ML VIAL. VAX IM ONE (09:00)
[2017-07-22] MEDS ORDERED: FLU VACC QS2017-18 (36MOS+)/PF 0.5 ML SYRINGE. VAX IM ONE (09:00)
[2017-07-22] MEDS ORDERED: INFLUENZA VAX SCREEN BY RX. MC ONE (10:00)
[2017-07-22] MEDS ORDERED: PNEUMOCOCCAL VAX SCREEN BY RX. MC ONE (10:00)
[2017-07-22] MEDS ORDERED: NYSTATIN TOPICAL POWDER 15GM BOTTLE. TP PRN (10:15)
[2017-07-22] MEDS ORDERED: ALBUTEROL SULFATE 2.5 MG/3 ML NEBU. NEB PRN (10:15)
[2017-07-22] MEDS ORDERED: NON FORMULARY ITEM (Albuterol Sulfate (Proair Hfa Inhaler) 1 PUFF) INH PRN (10:15)
[2017-07-22] MEDS ORDERED: PROCHLORPERAZINE 10 MG/2 ML VIAL. IV PRN (10:15)
[2017-07-22] MEDS: FLUTICASONE 50MCG/NASAL SPRAY 16GM BOTTLE. NS SCH (10:30)
[2017-07-22] MEDS: SENNOSIDES/DOCUSATE 8.6/50MG TABLET. PO SCH ×2 (10:30→21:11)
[2017-07-22] MEDS ORDERED: PROGESTERONE, MICRONIZED 100 MG CAPSULE PO SCH (10:30)
[2017-07-22] MEDS: tiZANidine 4 MG TABLET. PO SCH ×2 (10:30→21:10)
[2017-07-22] MEDS: TORSEMIDE 20 MG TABLET. PO SCH (10:30)
[2017-07-22 10:43] LABS: INR 2.3 (0.8-1.1); PROTHROMBIN TIME PATIENT 23.8 SEC (11.7-14.0)
[2017-07-22] MEDS: metOLazone 2.5 MG TABLET PO SCH (11:00)
--- NOTE | 2017-07-22 11:17 | HP ---
ADMIT DATE: 07/22/2017 CHIEF COMPLAINT: Nausea and vomiting. HISTORY OF PRESENT ILLNESS: The patient is a 47-year-old catastrophically obese -[place] woman with past medical history of CHF, COPD and pulmonary edema, who presented with a 2-week history of mid abdominal pain. She reports that 2 weeks ago, she actually started having diarrhea for several days and since then, actually has been constipated despite taking daily laxatives. Abdominal pain is crampy in nature, waxes and wanes, but never completely disappears. She has had nausea with this, typically in the mornings with clear bilious fluid, often set off after eating with regurgitation of her food. She denies any fevers, chills. Diarrhea now has completely resolved. She denies any dysuria or urinary frequency. Denies any significant cough. The patient is concerned about a second hernia above her previously repaired mid abdominal hernia. In the Emergency Room, she was found with severe hypokalemia and promptly admitted for further management. PAST MEDICAL HISTORY: Asthma, COPD, CHF, morbid obesity, hypoventilation syndrome and pulmonary edema. She is status post tubal ligation and hernia repair. FAMILY HISTORY: Negative for heart disease or hypertension. SOCIAL HISTORY: Lives with her family. No toxic habits, quit smoking several years ago. ALLERGIES: IODINE, MORPHINE AND SHELLFISH. MEDICATIONS: MAR reconciled with home meds. REVIEW OF SYSTEMS: Positive as per HPI. Rest of organ system review shows generalized aches and pains for which she takes oxycodone 30 mg at a time. Rest of organ system review is negative. PHYSICAL EXAMINATION: VITAL SIGNS: From today show a blood pressure of 118/71, heart rate of 87, respiratory rate at 18. She is afebrile. GENERAL: This is a massively obese 47-year-old -[place] woman, awake, alert, in no acute distress. LUNGS: Clear anteriorly. HEART: Has regular rate and rhythm. ABDOMEN: Massively obese, positive bowel sounds, tenderness to palpation throughout, more so in the upper quadrants than lower. EXTREMITIES: Show no edema. SKIN: Warm, soft and dry without any rash. LABORATORY DATA: CBC with a WBC of 11.9, hemoglobin 9.7, platelets of 292. Chemistries with a BUN and creatinine of 17 and 1.2, above her previous baseline of 0.8. Electrolytes with a potassium of 2.5, chloride at 91, CO2 at 45, which is fairly close to her baseline. Albumin at 2.9. LFTs within normal limits. Glucose at 120. IMAGING: CT of the abdomen and pelvis shows no definite acute abnormality identified with marked limited exam due to lack of intravenous or oral contrast. ASSESSMENT AND PLAN: The patient is a 47-year-old massively obese woman with 2 weeks history of abdominal pain. Etiology at this point is unclear. However, it has lead to additional electrolyte losses, which will have to be repleted. We will hold torsemide and continue Zaroxolyn for now. Monitor her electrolytes and fluid status daily. For her nausea, she has Zofran at home and we will complement with Compazine as well, both of them given IV. We will be gentle with IV fluids given her chronic fluid overload status requiring diuretics. We will continue all other home medications. Her mild acute renal failure is most likely secondary to volume status. Monitor creatinine daily as well. SAILAJA GARCIA MD DR: TAMIKO/georgette JOB#: [id number] / [id number] VALERIA Donovan NP
[2017-07-22] MEDS: LEVOTHYROXINE 50 MCG TABLET PO SCH (12:06)
[2017-07-22] MEDS: DOCUSATE SODIUM 100 MG CAPSULE. PO SCH (12:06)
[2017-07-22] MEDS: POTASSIUM CHLORIDE 20 MEQ TABLET.ER. PO SCH ×2 (12:08→17:11)
[2017-07-22] MEDS: FERROUS SULFATE 325 MG TABLET. PO SCH (12:08)
[2017-07-22] MEDS ORDERED: WARFARIN 3 MG TABLET. PO SCH (16:00)
[2017-07-22] MEDS ORDERED: WARFARIN 3 MG TABLET. PO ONE (16:00)
[2017-07-22] MEDS: busPIRone 10 MG TABLET. PO SCH (21:10)
[2017-07-23 03:00] VITALS: BP 119/83
[2017-07-23] MEDS: LEVOTHYROXINE 50 MCG TABLET PO SCH (05:53)
[2017-07-23 06:38] LABS: CALCIUM 9.1 mg/dL (8.5-10.1); CREATININE 0.9 mg/dL (0.6-1.0); GFR 81.9
[2017-07-23 07:00] VITALS: BP 95/51
[2017-07-23 07:02] LABS: INR 2.2 (0.8-1.1); PROTHROMBIN TIME PATIENT 23.2 SEC (11.7-14.0)
[2017-07-23 08:55] LABS: BASO % 0 % (0-3); EOS % 3 % (0-3); HEMATOCRIT 30.8 % (36.0-47.0); LYMPH # 1.1 x10^3/uL (1.0-4.8); LYMPH % 13 % (24-48); MEAN CORPUSCULAR HEMOGLOBIN 28 pg (25-35); MEAN CORPUSCULAR HGB CONC 32 g/dL (31-37); MEAN CORPUSCULAR VOLUME 87 fL (79-100); MONO % 4 % (0-9); NEUT % 80 % (31-73); PLATELET COUNT 286 x10^3/uL (140-400); RED BLOOD COUNT 3.56 x10^6/uL (3.50-5.40); RED CELL DISTRIBUTION WIDTH 14.5 % (11.5-14.5); WHITE BLOOD COUNT 8.2 x10^3/uL (4.0-11.0)
[2017-07-23] MEDS: DOCUSATE SODIUM 100 MG CAPSULE. PO SCH (09:00)
[2017-07-23] MEDS: TORSEMIDE 20 MG TABLET. PO SCH (09:00)
[2017-07-23] MEDS: metOLazone 2.5 MG TABLET PO SCH (09:00)
[2017-07-23] MEDS: FLUTICASONE 50MCG/NASAL SPRAY 16GM BOTTLE. NS SCH (09:00)
[2017-07-23] MEDS: FERROUS SULFATE 325 MG TABLET. PO SCH (09:00)
[2017-07-23] MEDS: SENNOSIDES/DOCUSATE 8.6/50MG TABLET. PO SCH ×2 (09:00→20:49)
[2017-07-23] MEDS ORDERED: WARFARIN 2.5 MG TABLET. PO SCH (09:00)
[2017-07-23] MEDS: tiZANidine 4 MG TABLET. PO SCH ×2 (09:01→20:48)
[2017-07-23] MEDS: POTASSIUM CHLORIDE 20 MEQ TABLET.ER. PO SCH ×2 (09:01→16:50)
[2017-07-23] MEDS: PROGESTERONE, MICRONIZED 100 MG CAPSULE PO SCH (10:18)
[2017-07-23 11:00] VITALS: BP 114/67
--- NOTE | 2017-07-23 14:30 | PDOC ---
PROGRESS NOTES Chief Complaint Chief Complaint Abdominal pain ASSESSMENT AND PLAN: 1. Abd pain, N/V: resolving with bowel rest. requesting food 2. Dehydration: intravascular depletion with relative hypotension. hold diuretics for now. 3. Hypokalemia: moderate. replete orally/IV, monitor closely. 4. BO: creat improving. 5. Hypothyroidism: TSH has been drifting up over past 2-3 yrs, now indicating subtherapeutic hormone repletion. increase to 75 mcg 6. Pain regimen: chronic pain rx.ed with narcotics, muscle relaxants at home. continue home meds History of Present Illness History of Present Illness in good spirits, feels better, no N/V. requesting food Vitals Vitals Vital Signs Date Time Temp Pulse Resp B/P (MAP) Pulse Ox O2 Delivery O2 Flow Rate FiO2 07/23/17 11:00 98.2 90 18 114/67 (83) 97 Nasal Cannula 2.5 98.2 Physical Exam General: Alert, Oriented X3, Cooperative, No acute distress Heart: Regular rate Lungs: Clear Abdomen: Normal bowel sounds, No tenderness Extremities: No edema Skin: No rashes Labs LABS Laboratory Tests Test 07/23/17 05:35 07/23/17 08:30 Prothrombin Time 23.2 SEC (11.7-14.0) Prothromb Time International Ratio 2.2 (0.8-1.1) Sodium Level 137 mmol/L (136-145) Potassium Level 3.0 mmol/L (3.5-5.1) Chloride Level 96 mmol/L (98-107) Carbon Dioxide Level 36 mmol/L (21-32) Anion Gap 5 (6-14) Blood Urea Nitrogen 9 mg/dL (7-20) Creatinine 0.9 mg/dL (0.6-1.0) Estimated GFR (Cockcroft-Gault) 81.9 Glucose Level 104 mg/dL (70-99) Calcium Level 9.1 mg/dL (8.5-10.1) Magnesium Level 2.0 mg/dL (1.8-2.4) Thyroid Stimulating Hormone (TSH) 5.265 uIU/mL (0.358-3.74) White Blood Count 8.2 x10^3/uL (4.0-11.0) Red Blood Count 3.56 x10^6/uL (3.50-5.40) Hemoglobin 10.0 g/dL (12.0-15.5) Hematocrit 30.8 % (36.0-47.0) Mean Corpuscular Volume 87 fL (79-100) Mean Corpuscular Hemoglobin 28 pg (25-35) Mean Corpuscular Hemoglobin Concent 32 g/dL (31-37) Red Cell Distribution Width 14.5 % (11.5-14.5) Platelet Count 286 x10^3/uL (140-400) Neutrophils (%) (Auto) 80 % (31-73) Lymphocytes (%) (Auto) 13 % (24-48) Monocytes (%) (Auto) 4 % (0-9) Eosinophils (%) (Auto) 3 % (0-3) Basophils (%) (Auto) 0 % (0-3) Neutrophils # (Auto) 6.5 x10^3uL (1.8-7.7) Lymphocytes # (Auto) 1.1 x10^3/uL (1.0-4.8) Monocytes # (Auto) 0.4 x10^3/uL (0.0-1.1) Eosinophils # (Auto) 0.2 x10^3/uL (0.0-0.7) Basophils # (Auto) 0.0 x10^3/uL (0.0-0.2) SAILAJA GARCIA MD Jul 23, 2017 14:30
[2017-07-23 15:00] VITALS: BP 105/58
[2017-07-23] MEDS ORDERED: WARFARIN 4 MG TABLET. PO ONE (16:00)
[2017-07-23] MEDS ORDERED: WARFARIN 4 MG TABLET. PO SCH (16:00)
[2017-07-23] MEDS ORDERED: diphenhydrAMINE 50 MG/ML VIAL IVP PRN (18:45)
[2017-07-23 19:00] VITALS: BP 101/49
[2017-07-23] MEDS: diphenhydrAMINE HCL 25 MG CAPSULE PO PRN (19:24)
[2017-07-23] MEDS: busPIRone 10 MG TABLET. PO SCH (20:48)
[2017-07-23 23:00] VITALS: BP 96/43
[2017-07-24 02:42] VITALS: BP 112/62
[2017-07-24 05:22] LABS: BASO % 0 % (0-3); EOS % 3 % (0-3); HEMATOCRIT 30.3 % (36.0-47.0); HEMOGLOBIN 10.4 g/dL (12.0-15.5); LYMPH # 1.3 x10^3/uL (1.0-4.8); LYMPH % 17 % (24-48); MEAN CORPUSCULAR HEMOGLOBIN 29 pg (25-35); MEAN CORPUSCULAR HGB CONC 34 g/dL (31-37); MEAN CORPUSCULAR VOLUME 85 fL (79-100); MONO % 5 % (0-9); NEUT % 75 % (31-73); PLATELET COUNT 318 x10^3/uL (140-400); RED BLOOD COUNT 3.56 x10^6/uL (3.50-5.40); RED CELL DISTRIBUTION WIDTH 14.6 % (11.5-14.5)
[2017-07-24 05:40] LABS: INR 2.7 (0.8-1.1); PROTHROMBIN TIME PATIENT 27.2 SEC (11.7-14.0)
[2017-07-24] MEDS: LEVOTHYROXINE 75 MCG TABLET PO SCH (05:43)
[2017-07-24 05:48] LABS: CALCIUM 8.9 mg/dL (8.5-10.1); CREATININE 0.9 mg/dL (0.6-1.0); GFR 81.9; MAGNESIUM 1.9 mg/dL (1.8-2.4); POTASSIUM 3.1 mmol/L (3.5-5.1)
[2017-07-24 07:00] VITALS: BP 114/66
[2017-07-24] MEDS: DOCUSATE SODIUM 100 MG CAPSULE. PO SCH ×2 (09:00→10:13)
[2017-07-24] MEDS: SENNOSIDES/DOCUSATE 8.6/50MG TABLET. PO SCH ×3 (09:00→21:00)
[2017-07-24] MEDS: POTASSIUM CHLORIDE 20 MEQ TABLET.ER. PO SCH ×2 (10:13→16:31)
[2017-07-24] MEDS: FLUTICASONE 50MCG/NASAL SPRAY 16GM BOTTLE. NS SCH (10:13)
[2017-07-24] MEDS: TORSEMIDE 20 MG TABLET. PO SCH (10:14)
[2017-07-24] MEDS: FERROUS SULFATE 325 MG TABLET. PO SCH (10:14)
[2017-07-24] MEDS: PROGESTERONE, MICRONIZED 100 MG CAPSULE PO SCH (10:14)
[2017-07-24] MEDS: tiZANidine 4 MG TABLET. PO SCH ×2 (10:15→20:41)
[2017-07-24] MEDS: metOLazone 2.5 MG TABLET PO SCH (10:15)
[2017-07-24 11:00] VITALS: BP 103/48
[2017-07-24] MEDS ORDERED: POTASSIUM CHLORIDE 20 MEQ TABLET.ER. PO SCH (11:45)
--- NOTE | 2017-07-24 11:47 | PDOC ---
PROGRESS NOTES Chief Complaint Chief Complaint Abdominal pain ASSESSMENT AND PLAN: 1. Abd pain, N/V: resolved, tolerating PO 2. Dehydration: intravascular depletion with relative hypotension resolved. restart (partial) diuretics 3. Hypokalemia: moderate. replete orally/IV, monitor closely. 4. BO: creat improving. 5. Hypothyroidism: on 75 mcg, recheck TSH in 1 month 6. Pain regimen: chronic pain rx.ed with narcotics, muscle relaxants at home. continue home meds 7. Dispo: home in AM if labs stable, sx resolved History of Present Illness History of Present Illness in good spirits, feels better, no N/V. requesting food Vitals Vitals Vital Signs Date Time Temp Pulse Resp B/P (MAP) Pulse Ox O2 Delivery O2 Flow Rate FiO2 07/24/17 11:00 98.2 102 20 103/48 (66) 96 Room Air 98.2 07/24/17 08:10 2.5 Physical Exam General: Alert, Oriented X3, Cooperative, No acute distress Heart: Regular rate Lungs: Clear Abdomen: Normal bowel sounds, No tenderness Extremities: No edema Skin: No rashes Labs LABS Laboratory Tests Test 07/24/17 04:10 White Blood Count 8.0 x10^3/uL (4.0-11.0) Red Blood Count 3.56 x10^6/uL (3.50-5.40) Hemoglobin 10.4 g/dL (12.0-15.5) Hematocrit 30.3 % (36.0-47.0) Mean Corpuscular Volume 85 fL (79-100) Mean Corpuscular Hemoglobin 29 pg (25-35) Mean Corpuscular Hemoglobin Concent 34 g/dL (31-37) Red Cell Distribution Width 14.6 % (11.5-14.5) Platelet Count 318 x10^3/uL (140-400) Neutrophils (%) (Auto) 75 % (31-73) Lymphocytes (%) (Auto) 17 % (24-48) Monocytes (%) (Auto) 5 % (0-9) Eosinophils (%) (Auto) 3 % (0-3) Basophils (%) (Auto) 0 % (0-3) Neutrophils # (Auto) 6.1 x10^3uL (1.8-7.7) Lymphocytes # (Auto) 1.3 x10^3/uL (1.0-4.8) Monocytes # (Auto) 0.4 x10^3/uL (0.0-1.1) Eosinophils # (Auto) 0.2 x10^3/uL (0.0-0.7) Basophils # (Auto) 0.0 x10^3/uL (0.0-0.2) Prothrombin Time 27.2 SEC (11.7-14.0) Prothromb Time International Ratio 2.7 (0.8-1.1) Sodium Level 139 mmol/L (136-145) Potassium Level 3.1 mmol/L (3.5-5.1) Chloride Level 97 mmol/L (98-107) Carbon Dioxide Level 40 mmol/L (21-32) Anion Gap 2 (6-14) Blood Urea Nitrogen 9 mg/dL (7-20) Creatinine 0.9 mg/dL (0.6-1.0) Estimated GFR (Cockcroft-Gault) 81.9 Glucose Level 106 mg/dL (70-99) Calcium Level 8.9 mg/dL (8.5-10.1) Magnesium Level 1.9 mg/dL (1.8-2.4) SAILAJA GARCIA MD Jul 24, 2017 11:47
[2017-07-24 15:00] VITALS: BP 120/43
[2017-07-24] MEDS: WARFARIN 3 MG TABLET. PO SCH (16:24)
[2017-07-24 19:00] VITALS: BP 102/53
[2017-07-24] MEDS: busPIRone 10 MG TABLET. PO SCH (20:41)
[2017-07-24 22:53] VITALS: BP 88/54
[2017-07-25 03:35] VITALS: BP 120/67
[2017-07-25 04:45] LABS: BASO % 0 % (0-3); EOS % 3 % (0-3); HEMATOCRIT 31.3 % (36.0-47.0); HEMOGLOBIN 10.1 g/dL (12.0-15.5); LYMPH # 1.6 x10^3/uL (1.0-4.8); LYMPH % 20 % (24-48); MEAN CORPUSCULAR HEMOGLOBIN 28 pg (25-35); MEAN CORPUSCULAR HGB CONC 32 g/dL (31-37); MEAN CORPUSCULAR VOLUME 87 fL (79-100); MONO % 5 % (0-9); NEUT % 72 % (31-73); PLATELET COUNT 305 x10^3/uL (140-400); RED BLOOD COUNT 3.61 x10^6/uL (3.50-5.40); RED CELL DISTRIBUTION WIDTH 14.2 % (11.5-14.5)
[2017-07-25 04:51] LABS: INR 2.6 (0.8-1.1); PROTHROMBIN TIME PATIENT 26.4 SEC (11.7-14.0)
[2017-07-25 04:53] LABS: CALCIUM 8.9 mg/dL (8.5-10.1); GFR 72.5; MAGNESIUM 1.8 mg/dL (1.8-2.4); POTASSIUM 3.2 mmol/L (3.5-5.1)
[2017-07-25] MEDS: LEVOTHYROXINE 75 MCG TABLET PO SCH (05:59)
[2017-07-25 07:15] VITALS: BP 103/57
[2017-07-25] MEDS: FERROUS SULFATE 325 MG TABLET. PO SCH (08:16)
[2017-07-25] MEDS: TORSEMIDE 20 MG TABLET. PO SCH (08:16)
[2017-07-25] MEDS: tiZANidine 4 MG TABLET. PO SCH (08:16)
[2017-07-25] MEDS: POTASSIUM CHLORIDE 20 MEQ TABLET.ER. PO SCH ×2 (08:16→17:11)
[2017-07-25] MEDS: PROGESTERONE, MICRONIZED 100 MG CAPSULE PO SCH (08:16)
[2017-07-25] MEDS: metOLazone 2.5 MG TABLET PO SCH (08:16)
[2017-07-25] MEDS: SENNOSIDES/DOCUSATE 8.6/50MG TABLET. PO SCH (08:17)
[2017-07-25] MEDS: DOCUSATE SODIUM 100 MG CAPSULE. PO SCH (08:17)
[2017-07-25] MEDS: FLUTICASONE 50MCG/NASAL SPRAY 16GM BOTTLE. NS SCH (08:17)
[2017-07-25] MEDS: diphenhydrAMINE HCL 25 MG CAPSULE PO PRN (08:28)
[2017-07-25 11:20] VITALS: BP 99/53
[2017-07-25] MEDS ORDERED: LEVO75TA PO (12:46)
[2017-07-25] MEDS ORDERED: TORS20TA PO (12:46)
[2017-07-25 15:16] VITALS: BP 116/53
[2017-07-25] MEDS: WARFARIN 3 MG TABLET. PO SCH (17:09)
[2017-07-25] MEDS: busPIRone 10 MG TABLET. PO SCH (17:21)
--- NOTE | 2017-07-26 03:49 | DS ---
DATE OF DISCHARGE: 07/25/2017 CHIEF COMPLAINT: Abdominal pain, nausea, vomiting. HOSPITAL COURSE: The patient is a 47-year-old morbidly obese woman with a BMI of 88, who presented to the hospital with above complaints. She was found with dehydration and mild acute kidney injury secondary to vasomotor issues. Her diuretics were held and she did not receive any IV fluids as she supposedly has a history of CHF and fluid overload. Her creatinine actually improved with these maneuvers and her abdominal symptoms completely resolved. Her hypokalemia was replaced both orally and IV and stabilized prior to discharge. For her hypothyroidism, TSH was noted to be higher than therapeutic and her Synthroid was therefore increased from 50 to 75 mcg. The patient was advised not to increase diuretics on her own. She is convinced that she can tell fluid retention in her pannus. She is worried that she needs IV diuretics to get rid of fluid. I discussed with her that holding diuretics for 2 days will certainly not make her fluid overloaded and given the dehydration at admission, no intravenous diuretics should be utilized at this point. Once again, advised her not to haphazardly increase the prescribed doses of her diuretics. PHYSICAL EXAMINATION: VITAL SIGNS: Show blood pressure of 103/48, heart rate of 102, respiratory rate at 20. She is satting 96% on room air. GENERAL: This is a pleasant, morbidly obese -[place] woman, alert and oriented, in no acute distress. LUNGS: Clear. HEART: Regular rate and rhythm. ABDOMEN: Catastrophically obese. EXTREMITIES: Show no edema. DISCHARGE DIAGNOSES: Dehydration, acute kidney injury, hypokalemia. DISCHARGE DISPOSITION: To home with services. DISCHARGE CONDITION: Improved. DISCHARGE MEDICATIONS: Please refer to MAR. DISCHARGE INSTRUCTIONS: The patient will follow up with her primary care physician in 1 week. SAILAJA GARCIA MD DR: TAMIKO/nts JOB#: [id number] / [id number] VALERIA Donovan NP MTDD
[2017-09-02] MEDS ORDERED: TIZA4TAB PO (02:29)
[2017-09-02] MEDS ORDERED: BUSP30TA PO (02:29)
[2017-09-02] MEDS ORDERED: RANI150T2 PO (02:29)
[2017-09-02] MEDS ORDERED: TORS20TA2 PO (02:29)
[2017-09-02] MEDS ORDERED: OXYC30TA PO (02:29)
[2017-09-02] MEDS ORDERED: METO2.5T PO (02:29)
[2017-09-02] MEDS ORDERED: POTA20TA4 PO ×3 (02:29)
[2017-09-02] MEDS ORDERED: SENN8.6T99 PO (02:29)
[2017-09-02] MEDS ORDERED: KETOPROFEN EXT (02:29)
[2017-09-02] MEDS ORDERED: FLUV50TA2 PO (02:29)
[2017-09-02] MEDS ORDERED: ONDA4TAB10 SL (02:29)
[2017-09-02] MEDS ORDERED: IPRA3AMP NEB (02:29)
== END 2017-07-25 17:58 | disposition home health service (06) | DRG 683 ==
LOC: ER 21:54 → 4 NORTH 07-22 01:20
PROVIDERS: ADMIT Internal Medicine; ATTEND Internal Medicine
PROC: 5A09457 Assistance with Respiratory Ventilation, 24-96 Consecutive Hours, Continuous Positive Airway Pressure (ICD-10-PCS; principal; 2017-07-22)
DX: N17.0 Acute kidney failure with tubular necrosis (principal); Z68.45 Body mass index [BMI] 70 or greater, adult; I50.9 Heart failure, unspecified; I95.9 Hypotension, unspecified; E44.1 Mild protein-calorie malnutrition; E66.01 Morbid (severe) obesity due to excess calories; E87.6 Hypokalemia; E03.9 Hypothyroidism, unspecified; E86.0 Dehydration; G89.29 Other chronic pain; J44.9 Chronic obstructive pulmonary disease, unspecified; Z98.51 Tubal ligation status; Z87.01 Personal history of pneumonia (recurrent); Z88.8 Allergy status to other drugs, medicaments and biological substances; Z91.041 Radiographic dye allergy status; Z91.02 Food additives allergy status; Z91.013 Allergy to seafood
CPT/HCPCS: 36415; 51701; 74176; 80048; 80053; 81001; 81025; 82962; 83690; 83735; 84443; 85025; 85610; 90686; 90732; 94250; 94660; 94760; 96361; 96374; 96375; J1170; J2405; J7030; Q0163; 99285-25